=== PATIENT | female | born 1995 | race Caucasian/White ===

== ENCOUNTER → 2016-07-16 | Outpatient (CLI) | payer OTHER ==
[~2016-07-16] MED LIST: AGM875T PO; AMOX250S5 PO; BCP; CIPR-225 PO; CLIN300C3 PO; ESCI20TA2 PO; HYDR-1231 PO; HYDR118S PO; LMT25T PO; LORA10CA PO; MELO15TA14 PO; NF-SKEL800 PO; ONDA4TAB8 PO; PENI500T PO; PHEN-640 PO; SULF-222 PO; TRAM50TA2 PO; birth control; tetracaine suckers PO
--- OUTSIDE RECORDS SUMMARY | 2016-07-16 17:48 | XMS REPORT | Continuity of Care Document ---
Author Author Formerly [facility] Address Unknown Phone Unavailable Allergies Active Description Code Type Severity Reaction Onset Reported/Identified Relationship to Patient Clinical Status Yes No Known Drug Allergies [id number] Drug Allergy Unknown N/ A 06/26/2010 Yes Bactrim Drug Allergy N/A N/A 02/13/2014 Yes sulfamethoxazole [id number] Drug Allergy Severe HIVES 04/24/2014 Yes trimethoprim [id number] Drug Allergy Severe HIVES 04/24/2014 Medications Problems Date Dx Coded Attending Type Code Diagnosis Diagnosed By 06/26/2010 Ot 474.00 12/30/2011 616.10 VAGINITIS AND VULVOVAGINITIS UNSPECIFIED 12/30/2011 626.4 IRREGULAR MENSTRUAL CYCLE 12/30/2011 V74.5 STD SCREEN 12/30/2011 616.10 VAGINITIS AND VULVOVAGINITIS UNSPECIFIED 12/30/2011 626.4 IRREGULAR MENSTRUAL CYCLE 12/30/2011 V74.5 STD SCREEN 12/30/2011 616.10 VAGINITIS AND VULVOVAGINITIS UNSPECIFIED 12/30/2011 626.4 IRREGULAR MENSTRUAL CYCLE 12/30/2011 V74.5 STD SCREEN 12/30/2011 616.10 VAGINITIS AND VULVOVAGINITIS UNSPECIFIED 12/30/2011 626.4 IRREGULAR MENSTRUAL CYCLE 12/30/2011 V74.5 STD SCREEN 12/30/2011 HARITHA SOLOMON DO 616.10 VAGINITIS AND VULVOVAGINITIS UNSPECIFIED 12/30/2011 HARITHA SOLOMON DO 626.4 IRREGULAR MENSTRUAL CYCLE 12/30/2011 HARITHA SOLOMON DO V74.5 STD SCREEN 12/30/2011 HARITHA SOLOMON DO 616.10 VAGINITIS AND VULVOVAGINITIS UNSPECIFIED 12/30/2011 HARITHA SOLOMON DO 626.4 IRREGULAR MENSTRUAL CYCLE 12/30/2011 HARITHA SOLOMON DO V74.5 STD SCREEN 12/30/2011 SOLOMON DO, HARITHA K 616.10 VAGINITIS AND VULVOVAGINITIS UNSPECIFIED 12/30/2011 SOLOMON DO, HARITHA K 626.4 IRREGULAR MENSTRUAL CYCLE 12/30/2011 SOLOMON DO, HARITHA K V74.5 STD SCREEN 12/30/2011 SOLOMON DO, HARITHA K 616.10 VAGINITIS AND VULVOVAGINITIS UNSPECIFIED 12/30/2011 SOLOMON DO HARITHA K 626.4 IRREGULAR MENSTRUAL CYCLE 12/30/2011 SOLOMON DO HARITHA K V74.5 STD SCREEN 12/30/2011 SOLOMON DO, HARITHA K 616.10 VAGINITIS AND VULVOVAGINITIS UNSPECIFIED 12/30/2011 SOLMOON DO, HARITHA K 626.4 IRREGULAR MENSTRUAL CYCLE 12/30/2011 SOLOMON DO HARITHA K V74.5 STD SCREEN 12/30/2011 SOLOMON DO, HARITHA K 616.10 VAGINITIS AND VULVOVAGINITIS UNSPECIFIED 12/30/2011 SOLOMON DO HARITHA K 626.4 IRREGULAR MENSTRUAL CYCLE 12/30/2011 NEHA DO HARITHA K V74.5 STD SCREEN 12/30/2011 ZEN [employer] WE[employer] SERVICE UNIT OPERATOR, MIGUEL A 616.10 VAGINITIS AND VULVOVAGINITIS UNSPECIFIED 12/30/2011 ZEN OIL WELL SERVICE UNIT OPERATOR, MIGUEL A 626.4 IRREGULAR MENSTRUAL CYCLE 12/30/2011 ZEN OIL WELL SERVICE UNIT OPERATOR, MIGUEL A V74.5 STD SCREEN 12/30/2011 SOLOMON DO HARITHA K 616.10 VAGINITIS AND VULVOVAGINITIS UNSPECIFIED 12/30/2011 SOLOMON DO HARITHA K 626.4 IRREGULAR MENSTRUAL CYCLE 12/30/2011 SOLOMON DO HARITHA K V74.5 STD SCREEN 12/30/2011 SOLOMON DO, HARITHA K 616.10 VAGINITIS AND VULVOVAGINITIS UNSPECIFIED 12/30/2011 SOLOMON DO, HARITHA K 626.4 IRREGULAR MENSTRUAL CYCLE 12/30/2011 SOLOMON DO, HARITHA K V74.5 STD SCREEN 12/30/2011 ZEN OIL WELL SERVICE UNIT OPERATOR, MIGUEL A 616.10 VAGINITIS AND VULVOVAGINITIS UNSPECIFIED 12/30/2011 ZEN OIL WELL SERVICE UNIT OPERATOR, MIGUEL A 626.4 IRREGULAR MENSTRUAL CYCLE 12/30/2011 ZEN OIL WELL SERVICE UNIT OPERATOR, MIGUEL A V74.5 STD SCREEN 12/30/2011 NENA ZALDIVAR APRNIDI A 616.10 VAGINITIS AND VULVOVAGINITIS UNSPECIFIED 12/30/2011 NENA ZALDIVAR APRNIDI A 626.4 IRREGULAR MENSTRUAL CYCLE 12/30/2011 MIGUEL ZALDIVAR APRN A V74.5 STD SCREEN 01/27/2012 V25.02 Contraceptives 01/27/2012 V25.02 Contraceptives 01/27/2012 V25.02 Contraceptives 01/27/2012 V25.02 Contraceptives 01/27/2012 SOLOMON DO HARITHA K V25.02 Contraceptives 01/27/2012 SOLOMON DO, HARITHA K V25.02 Contraceptives 01/27/2012 SOLOMON DO, HARITHA K V25.02 Contraceptives 01/27/2012 SOLOMON DO, HARITHA K V25.02 Contraceptives 01/27/2012 SOLOMON DO, HARITHA K V25.02 Contraceptives 01/27/2012 SOLOMON DO, HARITHA K V25.02 Contraceptives 01/27/2012 MIGUEL ZALDIVAR APRN A V25.02 Contraceptives 01/27/2012 SOLOMON DO, HARITHA K V25.02 Contraceptives 01/27/2012 SOLOMON DO, HARITHA K V25.02 Contraceptives 01/27/2012 NENA ZALDIVAR APRNIDI A V25.02 Contraceptives 01/27/2012 MIGUEL ZALDIVAR APRN A V25.02 Contraceptives 02/09/2012 296.80 BIPOLAR DISORDER NOS 02/09/2012 296.80 BIPOLAR DISORDER NOS 02/09/2012 296.80 BIPOLAR DISORDER NOS 02/09/2012 296.80 BIPOLAR DISORDER NOS 02/09/2012 SOLOMON DO HARITHA K 296.80 BIPOLAR DISORDER NOS 02/09/2012 SOLOMON DO HARITHA K 296.80 BIPOLAR DISORDER NOS 02/09/2012 SOLOMON DO, HARITHA K 296.80 BIPOLAR DISORDER NOS 02/09/2012 SOLOMON DO, HARITHA K 296.80 BIPOLAR DISORDER NOS 02/09/2012 SOLOMON DO, HARITHA K 296.80 BIPOLAR DISORDER NOS 02/09/2012 SOLOMON DO HARITHA K 296.80 BIPOLAR DISORDER NOS 02/09/2012 ZEN FERRER MIGUEL A 296.80 BIPOLAR DISORDER NOS 02/09/2012 SOLOMON DO HARITHA K 296.80 BIPOLAR DISORDER NOS 02/09/2012 SOLOMON DO HARITHA K 296.80 BIPOLAR DISORDER NOS 02/09/2012 MIGUEL ZALDIVAR APRN 296.80 BIPOLAR DISORDER NOS 02/09/2012 MIGUEL ZALDIVAR APRN A 296.80 BIPOLAR DISORDER NOS 04/14/2012 V25.49 CONTRACEPTION SURVEILLANCE (REPEAT RX) 04/14/2012 V25.49 CONTRACEPTION SURVEILLANCE (REPEAT RX) 04/14/2012 V25.49 CONTRACEPTION SURVEILLANCE (REPEAT RX) 04/14/2012 V25.49 CONTRACEPTION SURVEILLANCE (REPEAT RX) 04/14/2012 HARITHA SOLOMON DO V25.49 CONTRACEPTION SURVEILLANCE (REPEAT RX) 04/14/2012 SOLOMON SAHARA MARTA K V25.49 CONTRACEPTION SURVEILLANCE (REPEAT RX) 04/14/2012 SOLOMON SAHARA MARTA K V25.49 CONTRACEPTION SURVEILLANCE (REPEAT RX) 04/14/2012 SAHARA SOLOMON DOA Nii V25.49 CONTRACEPTION SURVEILLANCE (REPEAT RX) 04/14/2012 HARITHA SOLOMON DO V25.49 CONTRACEPTION SURVEILLANCE (REPEAT RX) 04/14/2012 HARITHA SOLOMON DO V25.49 CONTRACEPTION SURVEILLANCE (REPEAT RX) 04/14/2012 MIGUEL ZALDIVAR APRN V25.49 CONTRACEPTION SURVEILLANCE (REPEAT RX) 04/14/2012 HARITHA SOLOMON DO V25.49 CONTRACEPTION SURVEILLANCE (REPEAT RX) 04/14/2012 HARITHA SOLOMON DO V25.49 CONTRACEPTION SURVEILLANCE (REPEAT RX) 04/14/2012 MIGUEL ZALDIVAR APRN V25.49 CONTRACEPTION SURVEILLANCE (REPEAT RX) 04/14/2012 MIGUEL ZALDIVAR APRN V25.49 CONTRACEPTION SURVEILLANCE (REPEAT RX) 06/02/2012 462 PHARYNGITIS ACUTE 06/02/2012 465.9 UPPER RESPIRATORY INFECTION 06/02/2012 462 PHARYNGITIS ACUTE 06/02/2012 465.9 UPPER RESPIRATORY INFECTION 06/02/2012 462 PHARYNGITIS ACUTE 06/02/2012 465.9 UPPER RESPIRATORY INFECTION 06/02/2012 HARITHA SOLOMON DO K 462 PHARYNGITIS ACUTE 06/02/2012 HARITHA SOLOMON DO K 465.9 UPPER RESPIRATORY INFECTION 06/02/2012 SAHARA SOLOMON DOA K 462 PHARYNGITIS ACUTE 06/02/2012 SOLOMON SAHARA MARTA K 465.9 UPPER RESPIRATORY INFECTION 06/02/2012 SAHARA SOLOMON DOA K 462 PHARYNGITIS ACUTE 06/02/2012 SOLOMON DO, HARITHA K 465.9 UPPER RESPIRATORY INFECTION 06/02/2012 SOLOMON DO, HARITHA K 462 PHARYNGITIS ACUTE 06/02/2012 SOLOMON DO, HARITHA K 465.9 UPPER RESPIRATORY INFECTION 06/02/2012 SOLOMON DO, HARITHA K 462 PHARYNGITIS ACUTE 06/02/2012 SOLOMON DO, HARITHA K 465.9 UPPER RESPIRATORY INFECTION 06/02/2012 SOLOMON DO, HARITHA K 462 PHARYNGITIS ACUTE 06/02/2012 SOLOMON DO, HARITHA K 465.9 UPPER RESPIRATORY INFECTION 06/02/2012 ZEN [employer] WELL SERVICE UNIT OPERATOR, MIGUEL A 462 PHARYNGITIS ACUTE 06/02/2012 ZEN OIL WELL SERVICE UNIT OPERATOR, MIGUEL A 465.9 UPPER RESPIRATORY INFECTION 06/02/2012 SOLOMON DO, HARITHA K 462 PHARYNGITIS ACUTE 06/02/2012 SOLOMON DO, HARITHA K 465.9 UPPER RESPIRATORY INFECTION 06/02/2012 SOLOMON DO, HARITHA K 462 PHARYNGITIS ACUTE 06/02/2012 SOLOMON DO, HARITHA K 465.9 UPPER RESPIRATORY INFECTION 06/02/2012 ZEN OIL WELL SERVICE UNIT OPERATOR, MIGUEL A 462 PHARYNGITIS ACUTE 06/02/2012 ZEN OIL WELL SERVICE UNIT OPERATOR, MIGUEL A 465.9 UPPER RESPIRATORY INFECTION 06/02/2012 ZEN OIL WELL SERVICE UNIT OPERATOR, MIGUEL A 462 PHARYNGITIS ACUTE 06/02/2012 ZEN OIL WELL SERVICE UNIT OPERATOR, MIGUEL A 465.9 UPPER RESPIRATORY INFECTION 08/01/2012 V74.1 TB SCREENING 08/01/2012 V74.1 TB SCREENING 08/01/2012 SOLOMON DO, HARITHA K V74.1 TB SCREENING 08/01/2012 SOLOMON DO, HARITHA K V74.1 TB SCREENING 08/01/2012 SOLOMON DO, HARITHA K V74.1 TB SCREENING 08/01/2012 SOLOMON DO, HARITHA K V74.1 TB SCREENING 08/01/2012 SOLOMON DO, HARITHA K V74.1 TB SCREENING 08/01/2012 SOLOMON DO, HARITHA K V74.1 TB SCREENING 08/01/2012 ZEN OIL WELL SERVICE UNIT OPERATOR, MIGUEL A V74.1 TB SCREENING 08/01/2012 SOLOMON DO, HARITHA K V74.1 TB SCREENING 08/01/2012 SOLOMON DO, HARITHA K V74.1 TB SCREENING 08/01/2012 ZEN OIL WELL SERVICE UNIT OPERATOR, MIGUEL A V74.1 TB SCREENING 08/01/2012 ZEN APRN, MIGUEL A V74.1 TB SCREENING 08/10/2012 V03.89 MENINGOCOCCAL DX 08/10/2012 SOLOMON DO, HARITHA K V03.89 MENINGOCOCCAL DX 08/10/2012 SOLOMON DO, HARITHA K V03.89 MENINGOCOCCAL DX 08/10/2012 SOLOMON DO, HARITHA K V03.89 MENINGOCOCCAL DX 08/10/2012 SOLOMON DO, HARITHA K V03.89 MENINGOCOCCAL DX 08/10/2012 SOLOMON DO, HARITHA K V03.89 MENINGOCOCCAL DX 08/10/2012 SOLOMON DO, HARITHA K V03.89 MENINGOCOCCAL DX 08/10/2012 ZEN OIL WELL SERVICE UNIT OPERATOR MIGUEL A V03.89 MENINGOCOCCAL DX 08/10/2012 SOLOMON DO, HARITHA K V03.89 MENINGOCOCCAL DX 08/10/2012 SOLOMON DO, HARITHA K V03.89 MENINGOCOCCAL DX 08/10/2012 ZENMalou FERRER MIGUEL A V03.89 MENINGOCOCCAL DX 08/10/2012 ZEN OIL WELL SERVICE UNIT OPERATOR MIGUEL A V03.89 MENINGOCOCCAL DX 01/24/2013 SOLOMON DO, HARITHA K V25.9 CONTRACEPTION MANAGEMENT 01/24/2013 SOLOMON DO, HARITHA K V25.9 CONTRACEPTION MANAGEMENT 01/24/2013 SOLOMON DO, HARITHA K V25.9 CONTRACEPTION MANAGEMENT 01/24/2013 SOLOMON DO, HARITHA K V25.9 CONTRACEPTION MANAGEMENT 01/24/2013 SOLOMON DO, HARITHA K V25.9 CONTRACEPTION MANAGEMENT 01/24/2013 SOLOMON DO, HARITHA K V25.9 CONTRACEPTION MANAGEMENT 01/24/2013 ZEN FERRER MIGUEL A V25.9 CONTRACEPTION MANAGEMENT 01/24/2013 SOLOMON DO, HARITHA K V25.9 CONTRACEPTION MANAGEMENT 01/24/2013 SOLOMON DO, HARITHA K V25.9 CONTRACEPTION MANAGEMENT 01/24/2013 ZEN APRN, MIGUEL A V25.9 CONTRACEPTION MANAGEMENT 01/24/2013 ZEN APRN, MIGEUL A V25.9 CONTRACEPTION MANAGEMENT 05/15/2013 SOLOMON DO HARITHA K 461.9 SINUSITIS ACUTE 05/15/2013 SOLOMON DO HARITHA K 461.9 SINUSITIS ACUTE 05/15/2013 SOLOMON DO HARITHA K 461.9 SINUSITIS ACUTE 05/15/2013 SOLOMON DO, HARITHA K 461.9 SINUSITIS ACUTE 05/15/2013 ZEN OIL WELL SERVICE UNIT OPERATOR, MIGUEL A 461.9 SINUSITIS ACUTE 05/15/2013 SOLOMON DO, HARITHA K 461.9 SINUSITIS ACUTE 05/15/2013 SOLOMON DO, HARITHA K 461.9 SINUSITIS ACUTE 05/15/2013 ZEN OIL WELL SERVICE UNIT OPERATOR, MIGUEL A 461.9 SINUSITIS ACUTE 05/15/2013 ZEN OIL WELL SERVICE UNIT OPERATOR, MIGUEL A 461.9 SINUSITIS ACUTE 09/26/2013 SOLOMON DO, HARITHA K V06.1 TDAP DX 09/26/2013 SOLOMON DO, HARITHA K V06.1 TDAP DX 09/26/2013 ZEN OIL WELL SERVICE UNIT OPERATOR, MIGUEL A V06.1 TDAP DX 09/26/2013 SOLOMON DO, HARITHA K V06.1 TDAP DX 09/26/2013 SOLOMON DO, HARITHA K V06.1 TDAP DX 09/26/2013 ZEN OIL WELL SERVICE UNIT OPERATOR, MIGUEL A V06.1 TDAP DX 09/26/2013 ZEN OIL WELL SERVICE UNIT OPERATOR, MIGUEL A V06.1 TDAP DX 10/22/2013 CHRISTINE RICHARD MD A Ot 682.6 CELLULITIS OF LEG 12/26/2013 ZEN FERRER, MIGUEL A 799.29 OTHER SIGNS AND SYMPTOMS INVOLVING EMOTIONAL STATE 12/26/2013 SOLOMON DOSAHARAA K 799.29 OTHER SIGNS AND SYMPTOMS INVOLVING EMOTIONAL STATE 12/26/2013 SOLOMON DO HARITHA K 799.29 OTHER SIGNS AND SYMPTOMS INVOLVING EMOTIONAL STATE 12/26/2013 ZENJEFFREY FERRER, MIGUEL A 799.29 OTHER SIGNS AND SYMPTOMS INVOLVING EMOTIONAL STATE 12/26/2013 ZENJEFFREY FERRER, MIGUEL A 799.29 OTHER SIGNS AND SYMPTOMS INVOLVING EMOTIONAL STATE 02/13/2014 SOLOMON DO, HARITHA K 382.9 OTITIS MEDIA 02/13/2014 ZEN FERRER, MIGUEL A 382.9 OTITIS MEDIA 02/13/2014 NENA ZALDIVAR APRNIDI A 382.9 OTITIS MEDIA 04/23/2014 LUIS ENRIQUE SMITH Ot 882.0 OPEN WOUND OF HAND 04/23/2014 LUIS ENRIQUE SMITH Ot E000.8 OTHER EXTERNAL CAUSE STATUS 04/23/2014 LUIS ENRIQUE SMITH Ot E906.3 ANIMAL BITE NEC 04/24/2014 LUIS ENRIQUE SMITH Ot V58.30 ENCOUNTER FOR CHANGE OR REMOVAL OF NONSU 04/25/2014 GABRIELA JOHNSON DO Ot 682.4 CELLULITIS OF HAND 07/02/2014 ZEN FERRER, MIGUEL A 373.11 HORDEOLUM EXTERNUM 07/02/2014 ZEN OIL WELL SERVICE UNIT OPERATOR, MIGUEL A 373.11 HORDEOLUM EXTERNUM 07/19/2014 EZN OIL WELL SERVICE UNIT OPERATOR, MIGUEL A V25.09 CONTRACEPTIVE COUNSELING - GENERAL 07/19/2014 ZEN OIL WELL SERVICE UNIT OPERATOR, MIGUEL A V25.09 CONTRACEPTIVE COUNSELING - GENERAL 08/06/2014 ZEN APRN, MIGUEL A V25.5 IMPLANON INSERTION 08/09/2014 MIGUEL ZALDIVAR APRN A 461.1 ACUTE FRONTAL SINUSITIS 12/23/2014 JACKLYN NEVILLE OIL WELL SERVICE UNIT OPERATOR Ot 558.9 NONINF GASTROENTERIT NEC 12/23/2014 JACKLYN NEVILLE OIL WELL SERVICE UNIT OPERATOR Ot 787.03 VOMITING ALONE 12/23/2014 TEOFILO JEFF MEDICAID COLLECTION SPECIALIST Ot 518.89 12/23/2014 TEOFILO JEFF MEDICAID COLLECTION SPECIALIST Ot 795.51 03/02/2015 TEOFILO JEFF MEDICAID COLLECTION SPECIALIST Ot 518.89 03/02/2015 TEOFILO JEFF MEDICAID COLLECTION SPECIALIST Ot 795.51 03/02/2015 JACKLYN NEVILLE OIL WELL SERVICE UNIT OPERATOR Ot Z09 2015 SARIAH LOPEZ DO Ot M54.5 LOW BACK PAIN 2015 SARIAH LOPEZ DO Ot R31.2 OTHER MICROSCOPIC HEMATURIA 2015 TEOFILO JEFF MEDICAID COLLECTION SPECIALIST Ot 518.89 2015 TEOFILO JEFF MEDICAID COLLECTION SPECIALIST Ot 795.51 07/03/2015 ALAYNA EPSTEIN, CELESTINE Tierney Ot N12 TUBULO-INTERSTITIAL NEPHRITIS, NOT SPCF 07/03/2015 ALAYNA EPSTEIN, CELESTINE Tierney Ot N39.0 URINARY TRACT INFECTION, SITE NOT SPECIF 07/06/2015 ALAYNA EPSTEIN, CELESTINE Tierney Ot M54.5 LOW BACK PAIN 07/06/2015 ALAYNA EPSTEIN, CELESTINE Tierney Ot R10.13 EPIGASTRIC PAIN 07/06/2015 ALAYNA EPSTEIN, CELESTINE Tierney Ot R11.2 NAUSEA WITH VOMITING, UNSPECIFIED 07/06/2015 ALAYNA EPSTEIN, CELESTINE Tierney Ot R19.7 DIARRHEA, UNSPECIFIED 07/19/2015 AZUL QUIÑONES MD Ot B34.9 VIRAL INFECTION, UNSPECIFIED 08/01/2015 CATHERINE EPSTEIN, SIXTO Bales Ot J06.9 ACUTE UPPER RESPIRATORY INFECTION, UNSPE 08/02/2015 CATHERINE EPSTEIN, SIXTO Bales Ot J06.9 12/11/2015 TEOFILO JEFF MEDICAID COLLECTION SPECIALIST Ot 518.89 OTHER DISEASES OF LUNG, NEC 12/11/2015 TEOFILO JEFF MEDICAID COLLECTION SPECIALIST Ot 795.51 NONSP RX TO TUBERCULIN SKIN TEST W/ O ACT 04/12/2016 TEOFILO JEFF MEDICAID COLLECTION SPECIALIST Ot 518.89 OTHER DISEASES OF LUNG, NEC 04/12/2016 TEOFILO JEFF MEDICAID COLLECTION SPECIALIST Ot 795.51 NONSP RX TO TUBERCULIN SKIN TEST W/ O ACT 04/12/2016 AZUL QUIÑONES MD Ot N39.0 URINARY TRACT INFECTION, SITE NOT SPECIF 04/12/2016 AZUL QUIÑONES MD Ot R35.0 FREQUENCY OF MICTURITION 04/14/2016 AZUL QUIÑONES MD Ot N39.0 URINARY TRACT INFECTION, SITE NOT SPECIF 04/14/2016 AZUL QUIÑONES MD Ot R35.0 FREQUENCY OF MICTURITION Procedures Code [place] [address] THERAPUTIC INJ SQ/IM 04/14/2012 J1055 DEPO-PROVERA INJ 150 MG 04/14/2012 09096 URINE TEST (IN-HOUSE) 04/14/2012 04600 STREP A (IN-HOUSE) 06/02/2012 97617 TB TEST INTRADERMAL 08/01/2012 09149 URINE TEST (IN-HOUSE) 09/26/2012 47811 THERAPUTIC INJ SQ/IM 09/26/2012 J1050 DEPO PROVERA 99023 GC/CHLAM URINE (STATE) 01/24/2013 37247 URINE TEST (IN-HOUSE) 01/24/2013 16462 THERAPUTIC INJ SQ/IM 01/31/2013 J1050 DEPO PROVERA 74580 URINE TEST (IN-HOUSE) 01/31/2013 04575 URINE TEST (IN-HOUSE) 04/27/2013 J1050 DEPO PROVERA 76900 THERAPUTIC INJ SQ/IM 04/27/2013 70067 THERAPUTIC INJ SQ/IM 07/21/2013 J1050 DEPO PROVERA 05600 TEST, URINE (IN-HOUSE) 07/21/2013 J1050 DEPO PROVERA 02/2014 20921 TEST, URINE (IN-HOUSE) 10/17/2013 34471 THERAPUTIC INJ SQ/IM 10/17/2013 76483 THERAPUTIC INJ SQ/IM 01/24/2014 J1050 DEPO PROVERA 00107 TEST, URINE (IN-HOUSE) 01/24/2014 Results Test Result Range Urine beta human chorionic gonadotropin (hCG) measurement - 04/12/16 08:15 Urine beta human chorionic gonadotropin (hCG) measurement NEGATIVE NEGATIVE Complete urinalysis with reflex to culture - 04/12/16 08:15 Urine color determination RED NRG Urine clarity determination VERY CLOUDY NRG Urine pH measurement by test strip 6 5- 9 Specific gravity of urine by test strip 1.020 1.016-1.022 Urine protein assay by test strip, semi-quantitative 3+ NEGATIVE Urine glucose detection by automated test strip NEGATIVE NEGATIVE Erythrocytes detection in urine sediment by light microscopy 5+ NEGATIVE Urine ketones detection by automated test strip NEGATIVE NEGATIVE Urine nitrite detection by test strip POSITIVE NEGATIVE Urine total bilirubin detection by test strip 1+ NEGATIVE Urine urobilinogen measurement by automated test strip (mass/volume) 1 mg/dL NORMAL Urine leukocyte esterase detection by dipstick 3+ NEGATIVE Automated urine sediment erythrocyte count by microscopy (number/high power field) TNTC NRG Automated urine sediment leukocyte count by microscopy (number/high power field ) TNTC NRG Bacteria detection in urine sediment by light microscopy LARGE NRG Squamous epithelial cells detection in urine sediment by light microscopy 0-2 NRG Crystals detection in urine sediment by light microscopy NONE NRG Casts detection in urine sediment by light microscopy NONE NRG Mucus detection in urine sediment by light microscopy NEGATIVE NRG Complete urinalysis with reflex to culture YES NRG Bacterial urine culture - 04/12/16 08:15 URINE CULTURE RESULTS <10,000/ML NRG Encounters ACCT No. Visit Date/Time Discharge Status Pt. Type Provider Facility Loc./Unit Complaint [id number] 08/09/2014 10:08:00 08/09/2014 23: 59:59 CLS Outpatient MIGUEL ZALDIVAR APRN [id number] 07/19/2014 15:42:00 07/19/2014 23: 59:59 CLS Outpatient MIGUEL ZALDIVAR APRN [id number] 02/13/2014 18:42:00 02/13/2014 23: 59:59 CLS Outpatient HARITHA SOLOMON DO [id number] 01/24/2014 17:34:00 01/24/2014 23: 59:59 CLS Outpatient HARITHA SOLOMON DO [id number] 12/26/2013 14:17:00 12/26/2013 23: 59:59 CLS Outpatient MIGUEL ZALDIVAR APRN [id number] 10/17/2013 08:20:00 10/17/2013 23: 59:59 CLS Outpatient HARITHA SOLOMON DO [id number] 09/26/2013 14:44:00 09/26/2013 23: 59:59 CLS Outpatient HARITHA SOLOMON DO [id number] 07/21/2013 12:11:00 07/21/2013 23: 59:59 CLS Outpatient HARITHA SOLOMON DO [id number] 05/15/2013 18:43:00 05/15/2013 23: 59:59 CLS Outpatient HARITHA SOLOMON DO [id number] 04/27/2013 15:32:00 04/27/2013 23: 59:59 CLS Outpatient HARITHA SOLOMON DO [id number] 01/31/2013 15:06:00 01/31/2013 23: 59:59 CLS Outpatient HARITHA SOLOMON DO [id number] 08/01/2012 15:07:00 08/01/2012 23: 59:59 CLS Outpatient [id number] 06/02/2012 14:03:00 06/02/2012 23: 59:59 CLS Outpatient [id number] 04/14/2012 15:37:00 04/14/2012 23: 59:59 CLS Outpatient [id number] 09/26/2012 15:46:00 Document Registration [id number] 08/10/2012 14:24:48 RECURRING
== END ==
LOC: LAB 17:43
DX: Z52.0 Blood donor (principal)
CPT/HCPCS: 36415; 84703

== ENCOUNTER → 2017-04-06 | Outpatient (CLI) | payer BC, OTHER ==
--- NOTE | 2017-04-06 20:24 | Diagnostic Imaging Report ---
EXAMINATION: Left breast ultrasound. INDICATION: Left breast nodule. The patient is 6 weeks . FINDINGS: The palpable area demonstrates a nodule at the 2:30 o'clock position 2 cm from the nipple measuring 1.6 x 0.8 x 1.9 cm with a homogeneous hypoechoic appearance with lobulated circumscribed margins and increased through transmission. There is internal vascular Doppler signal seen. The lesion is most likely a fibroadenoma. The surrounding area was evaluated with no suspicious lesion seen. IMPRESSION: A 1.9 cm solid mass at the 2:30 o'clock position 2 cm from the nipple matches the palpable area and has features suggestive of a fibroadenoma. Confirmation with an ultrasound-guided biopsy is suggested. Alternatively, this could be followed for 2 years starting at 6 month intervals with ultrasounds to prove stability. ACR BI-RADS Category 4A: Low suspicion of malignancy Please fax results to ordering physician and document. Report faxed to Dr. Melgoza at 8:24 p.m. 04/06/2017/cb Dictated by: Dictated on workstation # [id number]
== END ==
LOC: RAD 10:55
PROVIDERS: ATTEND Family Medicine
DX: O92.29 Other disorders of breast associated with pregnancy and the puerperium (principal); Z3A.01 Less than 8 weeks gestation of pregnancy
CPT/HCPCS: 76641

== ENCOUNTER 2017-04-07 15:02 | Emergency (ER) | payer BC ==
[~2017-04-07] VITALS: Ht 162.6 cm; Wt 57.2 kg
[2017-04-07 15:18] VITALS: BP 116/68
[2017-04-07 15:31] LABS: BILIRUBIN,URINE NEGATIVE (NEGATIVE); KETONES,URINE NEGATIVE (NEGATIVE); LEUKOCYTE ESTERASE ,URINE NEGATIVE (NEGATIVE); NITRITE,URINE NEGATIVE (NEGATIVE); PH,URINE 6 (5-9); PROTEIN,URINE NEGATIVE (NEGATIVE); UROBILINOGEN,URINE NORMAL (NORMAL)
[2017-04-07 15:37] LABS: BASOPHILS % (AUTO) 0 % (0-10); EOSINOPHILS # (AUTO) 0.1 10^3/uL (0.0-0.3); EOSINOPHILS % (AUTO) 1 % (0-10); LYMPHOCYTES # (AUTO) 1.8 X 10^3 (1.0-4.0); LYMPHOCYTES % (AUTO) 26 % (12-44); MEAN CORPUSCULAR HEMOGLOBIN 31 PG (25-34); MEAN CORPUSCULAR HGB CONC 35 G/DL (32-36); MEAN CORPUSCULAR VOLUME 89 FL (80-99); MEAN PLATELET VOLUME 9.7 FL (7.4-10.4); MONOCYTES # (AUTO) 0.7 X 10^3 (0.0-1.0); MONOCYTES % (AUTO) 10 % (0-12); NEUTROPHILS # (AUTO) 4.4 X 10^3 (1.8-7.8); NEUTROPHILS % (AUTO) 63 % (42-75); PLATELET COUNT 276 10^3/uL (130-400); RED BLOOD COUNT 4.07 10^6/uL (4.35-5.85); RED CELL DISTRIBUTION WIDTH 12.1 % (10.0-14.5); WHITE BLOOD COUNT 6.9 10^3/uL (4.3-11.0)
[2017-04-07 15:49] LABS: WBC,URINE 0-2 /HPF
--- NOTE | 2017-04-07 16:03 | ED GU-Female ---
General Chief Complaint: -Female Stated Complaint: 6 WKS ;SPOTTING Nursing Triage Note: PT REPORTS DARK BROWN VAGINAL DISCHARGE SINCE APPROX 1400 TODAY. SHE ALSO C/O ABD CRAMPING. SHE REPORTS SHE IS APPROX 6 WEEKS . Nursing Sepsis Screen: No Definite Risk Source: patient Exam Limitations: no limitations History of Present Illness Time seen by provider: 16:01 Initial Comments To ER with some lower abdominal cramping intermittently but not currently, no fevers, no dysuria. She has some brownish vaginal discharge as well as some brighter blood. Symptoms began today. She is about 6 weeks . She is scheduled to see Dr. GARCIA to establish care tomorrow. Timing/Duration: this afternoon Severity/Quality: moderate Radiation: none Prior Genitourinary Problems: none Associated Symptoms: abdominal pain, No dysuria Allergies and Home Medications Allergies Coded Allergies: sulfamethoxazole (Unverified Allergy, Severe, HIVES, 04/24/14) trimethoprim (Unverified Allergy, Severe, HIVES, 04/24/14) Home Medications [ control] , (Reported) Constitutional: see HPI EENTM: see HPI Respiratory: no symptoms reported Cardiovascular: no symptoms reported Genitourinary: see HPI : Yes Musculoskeletal: no symptoms reported Skin: no symptoms reported Psychiatric/Neurological: No Symptoms Reported Endocrine: No Symptoms Reported Hematologic/Lymphatic: No Symptoms Reported Past Wmwpbeq-Vlyhua-Thncjg Hx Patient Social History Alcohol Use: Denies Use Recreational Drug Use: No Smoking Status: Never a Smoker 2nd Hand Smoke Exposure: No Recent Foreign Travel: No Contact w/Someone Who Travel: No Recent Infectious Disease Expo: No Recent Hopitalizations: No Immunizations Up To Date Tetanus Booster (TDap): Less than 5yrs Seasonal Allergies Seasonal Allergies: No Surgeries History of Surgeries: Yes Surgeries: Adenoidectomy, Tonsillectomy Respiratory History of Respiratory Disorde: No Cardiovascular History of Cardiac Disorders: No Neurological History of Neurological Disord: No Reproductive System Last Menstrual Period: Feb 20, 2017 Hx Reproductive Disorders: No Sexually Transmitted Disease: No 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 Gastrointestinal History of Gastrointestinal Di: No Musculoskeletal History of Musculoskeletal Dis: No Endocrine History of Endocrine Disorders: No Cancer History of Cancer: No Psychosocial History of Psychiatric Problem: No Integumentary History of Skin or Integumenta: No Blood Transfusions History of Blood Disorders: No Family Medical History Significant Family History: Cancer Physical Exam Vital Signs Vital Sign - Last 12Hours 04/07/17 15:18 Temp 97.2 Pulse 70 Resp 16 B/P (MAP) 116/68 Pulse Ox 99 O2 Delivery Room Air Capillary Refill : Less Than 3 Seconds General Appearance: WD/WN, no apparent distress HEENT: PERRL/EOMI, normal ENT inspection Neck: non-tender, full range of motion Respiratory: no respiratory distress, no accessory muscle use Gastrointestinal: normal bowel sounds, non tender, soft Pelvic: normal external exam Neurologic/Psychiatric: alert, normal mood/affect, oriented x 3 Skin: normal color, warm/dry Progress/Results/Core Measures Suspected Sepsis Recent Fever Within 48 Hours: No Infection Criteria Present: None New/Unexplained Altered Menta: No Sepsis Screen: No Definite Risk Sepsis Diagnosis: SIRS Temperature:97.2 Pulse: 70 Respiratory Rate: 16 Laboratory Tests 04/07/17 15:25: White Blood Count 6.9 Blood Pressure 116 /68 Mean: 84 Laboratory Tests 04/07/17 15:25: Platelet Count 276 Results/Orders Lab Results Laboratory Tests Test 04/07/17 15:20 04/07/17 15:25 Range/Units Urine Color YELLOW Urine Clarity CLEAR Urine pH 6 5-9 Urine Specific Arch[place]d 1.015 L 1.016-1.022 Urine Protein NEGATIVE NEGATIVE Urine Glucose (UA) NEGATIVE NEGATIVE Urine Ketones NEGATIVE NEGATIVE Urine Nitrite NEGATIVE NEGATIVE Urine Bilirubin NEGATIVE NEGATIVE Urine Urobilinogen NORMAL NORMAL MG/DL Urine Leukocyte Esterase NEGATIVE NEGATIVE Urine RBC (Auto) 4+ H NEGATIVE Urine RBC 0-2 /HPF Urine WBC 0-2 /HPF Urine Squamous Epithelial Cells 5-10 /HPF Urine Crystals NONE /LPF Urine Bacteria FEW H /HPF Urine Casts NONE /LPF Urine Mucus NEGATIVE /LPF Urine Culture Indicated NO White Blood Count 6.9 4.3-11.0 10^3/uL Red Blood Count 4.07 L 4.35-5.85 10^6/uL Hemoglobin 12.7 11.5-16.0 G/DL Hematocrit 36 35-52 % Mean Corpuscular Volume 89 80-99 FL Mean Corpuscular Hemoglobin 31 25-34 PG Mean Corpuscular Hemoglobin Concent 35 32-36 G/DL Red Cell Distribution Width 12.1 10.0-14.5 % Platelet Count 276 130-400 10^3/uL Mean Platelet Volume 9.7 7.4-10.4 FL Neutrophils (%) (Auto) 63 42-75 % Lymphocytes (%) (Auto) 26 12-44 % Monocytes (%) (Auto) 10 0-12 % Eosinophils (%) (Auto) 1 0-10 % Basophils (%) (Auto) 0 0-10 % Neutrophils # (Auto) 4.4 1.8-7.8 X 10^3 Lymphocytes # (Auto) 1.8 1.0-4.0 X 10^3 Monocytes # (Auto) 0.7 0.0-1.0 X 10^3 Eosinophils # (Auto) 0.1 0.0-0.3 10^3/uL Basophils # (Auto) 0.0 0.0-0.1 10^3/uL Human Chorionic Gonadotropin, Quant 1859 H <5 MIU/ML My Orders Orders - JACKLYN NEVILLE APRN Cbc With Automated Diff (04/07/17 15:18) Abo Rh Type (04/07/17 15:18) Ua Culture If Indicated (04/07/17 15:18) Hcg,Quantitative (04/07/17 15:18) Us Ob Transvaginal [id number] (04/07/17 15:18) Vital Signs/I&O Vital Sign - Last 12Hours 04/07/17 15:18 Temp 97.2 Pulse 70 Resp 16 B/P (MAP) 116/68 Pulse Ox 99 O2 Delivery Room Air Capillary Refill : Less Than 3 Seconds Blood Pressure Mean: 84 Diagnostic Imaging Diagonstic Imaging: Ultrasound Comments NAME: JENNIE CRAWFORDChris Burgos MED REC#: [id number] PT STATUS: REG ER : 1995 PHYSICIAN: JACKLYN NEVILLE APRN ADMIT DATE: 04/07/17/ER Signed Date of Exam:04/07/17 US OB TRANSVAGINAL [id number] First trimester OB ultrasound. INDICATION: Spotting. FINDINGS: There is a normal-appearing single intrauterine . An embryo is seen with cardiac activity at 134 beats per minute. The crown-rump length is at 6 weeks and one day. LEONIDES is 11/30/2017. There is no subchorionic hemorrhage. There is small amount of free fluid in the pelvis. In the left adnexa there is a 1.4 centimeter cyst. The right adnexa demonstrates a the 2 cm cyst. Both appear to be simple with no solid component. The ovaries are not clearly identified however. IMPRESSION: Live single intrauterine . Small amount of free fluid is seen in the pelvis of uncertain etiology. Dictated by: Dictated on workstation # [id number] Dict: 04/07/17 1605 Trans: 04/07/17 1611 [facility] [id number] Interpreted by: GENIE CARLSON MD Electronically signed by: GENIE CARLSON MD 04/07/17 1611 Departure Communication (Admissions) Progress Notes underwriting technician reports live intrauterine 6 weeks 1 day. Some incidental findings in each adnexa and minor amount of pelvic free fluid. See the official report for details. We will discharge the patient home to follow- up with Dr. GARCIA tomorrow. Impression Impression: Primary Impression: Vaginal bleeding affecting early Disposition: 01 HOME, SELF-CARE Condition: Stable Departure-Patient Inst. Decision time for Depature: 16:03 Referrals: [facility] (PCP/Family) Primary Care Physician Patient Instructions: NO INSTRUCTIONS GIVEN Add. Discharge Instructions: 1. Return to ER for any concerns 2. Follow-up with Dr. GARCIA tomorrow All discharge instructions reviewed with patient and/or family. Voiced understanding. Copy Copies To 1: LALITO GARCIA PETER J APRN Apr 07, 2017 16:03
--- NOTE | 2017-04-07 16:13 | Diagnostic Imaging Report ---
First trimester OB ultrasound. INDICATION: Spotting. FINDINGS: There is a normal-appearing single intrauterine . An embryo is seen with cardiac activity at 134 beats per minute. The crown-rump length is at 6 weeks and one day. LEONIDES is 11/30/2017. There is no subchorionic hemorrhage. There is small amount of free fluid in the pelvis. In the left adnexa there is a 1.4 centimeter cyst. The right adnexa demonstrates a the 2 cm cyst. Both appear to be simple with no solid component. The ovaries are not clearly identified however. IMPRESSION: Live single intrauterine . Small amount of free fluid is seen in the pelvis of uncertain etiology. Dictated by: Dictated on workstation # [id number]
== END 2017-04-07 16:15 | disposition home or self-care (01) ==
LOC: EDUNIT# 15:02 → ER 15:03
DX: O20.9 Hemorrhage in early pregnancy, unspecified (principal); Z3A.01 Less than 8 weeks gestation of pregnancy; Z97.5 Presence of (intrauterine) contraceptive device; Z90.89 Acquired absence of other organs
CPT/HCPCS: 36415; 76817; 81000; 84702; 85025; 86900; 86901; 99283

== ENCOUNTER 2017-04-08 10:05 | Emergency (ER) | payer BC ==
--- OUTSIDE RECORDS SUMMARY | 2017-04-08 10:11 | XMS REPORT ---
Author Author JAN ARIZA Organization [employer] Address Unknown Phone Unavailable Care Team Providers Care Commercial Front Load Operator Name Role Phone JAN ARIZA CP Unavailable Allergies, Adverse Reactions, Alerts Substance Reaction Event Type Bactrim Info Not Available Drug Allergy Problems Problem Type Condition Code Onset Dates Condition Status Assessment Abscess L02.91 Active Assessment Encounter for incision and drainage procedure Z01.89 Active Problem Bipolar 1 disorder F31.9 Active Medications Medication Code System Code Instructions Start Date End Date Status Dosage Clindamycin HCl [facility] [address]-24 300 MG Orally every 8 hrs Apr 19, 2015 Apr 29, 2015 1 capsule Ortho-Cyclen (28) [facility] [address]-39 0.25-35 MG-MCG Orally Once a day Feb 1 tablet Procedures Procedure Coding System Code Date CULTURE, BACTERIA, OTHER CPT-4 91504 Apr 19, 2015 Office Visit, Est Pt., Level 3 CPT-4 56561 Apr 19, 2015 CULTURE BACTERIA ANAEROBIC CPT-4 26821 Apr 19, 2015 Vital Signs Date/Time: Apr 19, 2015 Temperature 98.7 F Weight 126.0 lbs Height 64 in BMI 21.63 Index Blood Pressure Diastolic 68 mmHg Blood Pressure Systolic 100 mmHg Cardiac Monitoring Heart Rate 76 bpm BMIPercentile 48.95 % Wt Percentile 45.51 % Results No Known Results Summary Purpose eClinicalWorks Submission
--- OUTSIDE RECORDS SUMMARY | 2017-04-08 10:12 | XMS REPORT ---
Author Author NATE BRAN [employer] Address Unknown Phone Unavailable Care Team Providers Care Sprinkling System Irrigator Name Role Phone NATE BRAN CP Unavailable Allergies, Adverse Reactions, Alerts Substance Reaction Event Type Bactrim Info Not Available Drug Allergy Problems Problem Type Condition Code Onset Dates Condition Status Problem Blood in urine R31.9 Active Problem Urine ketones R82.4 Active Problem Right-sided low back pain without sciatica M54.5 Active Assessment Blood in urine R31.9 Active Assessment Urine ketones R82.4 Active Problem Bipolar 1 disorder F31.9 Active Assessment Right-sided low back pain without sciatica M54.5 Active Medications Medication Code System Code Instructions Start Date End Date Status Dosage Naproxen [facility] [address]-02 500 MG Orally every 12 hrs May 17, 2015Jun 1 tablet as needed Ortho-Cyclen (28) [facility] [address]-74 0.25-35 MG-MCG Orally Once a day Feb 1 tablet Procedures Procedure Coding System Code Date URINE CULTURE/COLONY COUNT CPT-4 41066 May 17, 2015 Office Visit, Est Pt., Level 3 CPT-4 43975 May 17, 2015 Vital Signs Date/Time: May 17, 2015 Temperature 98.0 F Weight 124 lbs Height 64 in BMI 21.28 Index Blood Pressure Diastolic 62 mmHg Blood Pressure Systolic 102 mmHg Cardiac Monitoring Heart Rate 70 bpm Results Name Result Date Reference Range Unit Abnormality Flag UA LONG DIP (IN HOUSE) ----REMI Negative 20150517 ----NIT Negative 20150517 ----SG 1.025 20150517 ----KET Trace [id number] ----MORIAH Negative 20150517 ----GLU Negative [id number] ----Odor none [id number] ----pH 6.0 20150517 ----BLO trace-intact 20150517 ----URO 1.0E.U./dL 20150517 ----Protein Negative 20150517 ----Lot # [id number] ----Exp date [id number] ----Clarity clear [id number] ----Color yellow [id number] CULTURE, URINE ----Result 1 No growth [id number] ----Urine Culture, Routine Final report [id number] Summary Purpose eClinicalWorks Submission
--- OUTSIDE RECORDS SUMMARY | 2017-04-08 10:12 | XMS REPORT ---
Author Author JAN ARIZA Organization [employer] Address Unknown Phone Unavailable Care Team Providers Care Musical Instruments Assembler Name Role Phone JAN ARIZA CP Unavailable Allergies, Adverse Reactions, Alerts Substance Reaction Event Type Bactrim Info Not Available Drug Allergy Problems Problem Type Condition Code Onset Dates Condition Status Problem Bipolar 1 disorder F31.9 Active Assessment Bronchitis J40 Active Problem Bilateral headaches R51 Active Problem Oral contraceptive pill surveillance Z30.41 Active Problem Environmental allergies Z91.09 Active Problem Blood in urine R31.9 Active Problem Urine ketones R82.4 Active Problem Low back pain M54.5 Active Problem Right-sided low back pain without sciatica M54.5 Active Medications Medication Code System Code Instructions Start Date End Date Status Dosage PredniSONE [facility] [address]-20 10 mg Orally Once a day Feb 08, 2016 Feb 18, 2016 1 tid x 3, bid x 3 and daily x 3 Tessalon Perles [facility] [address]-39 100 MG Orally Three times a day Feb 08, 2016 1 capsule as needed Azithromycin [facility] [address]-33 250 MG Orally Once a day Feb 10, 2016 Feb 15, 2016 2 tablets on the first day, then 1 tablet daily for 4 days Procedures Procedure Coding System Code Date Office Visit, Est Pt., Level 3 CPT-4 83862 Feb 10, 2016 Vital Signs Date/Time: Feb 10, 2016 Cardiac Monitoring Heart Rate 92 bpm Weight 216.27 lbs Height 64 in BMI 37.12 Index Blood Pressure Diastolic 60 mmHg Blood Pressure Systolic 98 mmHg Results No Known Results Summary Purpose eClinicalWorks Submission
--- OUTSIDE RECORDS SUMMARY | 2017-04-08 10:12 | XMS REPORT ---
Author Author DIPIKA ARNDT [facility] eClinical[employer] Address Unknown Phone Unavailable Care Team Providers Care Feather Curling Machine Operator Name Role Phone DIPIKA ARNDT CP Unavailable Allergies, Adverse Reactions, Alerts Substance Reaction Event Type Bactrim Info Not Available Drug Allergy Problems Problem Type Condition Code Onset Dates Condition Status Assessment Cough R05 Active Problem Bipolar 1 disorder F31.9 Active Assessment Environmental allergies Z91.09 Active Assessment Postnasal drip R09.82 Active Problem Bilateral headaches R51 Active Problem Oral contraceptive pill surveillance Z30.41 Active Problem Environmental allergies Z91.09 Active Problem Blood in urine R31.9 Active Problem Urine ketones R82.4 Active Problem Low back pain M54.5 Active Problem Right-sided low back pain without sciatica M54.5 Active Medications Medication Code System Code Instructions Start Date End Date Status Dosage Aruna Mazariegoses [facility] [address]-31 100 MG Orally Three times a day Feb 08, 2016 1 capsule as needed PredniSONE [facility] [address]-45 10 mg Orally Once a day Feb 08, 2016 Feb 18, 2016 1 tid x 3, bid x 3 and daily x 3 Procedures Procedure Coding System Code Date Office Visit, Est Pt., Level 3 CPT-4 12726 Feb 08, 2016 Vital Signs Date/Time: Feb 08, 2016 Cardiac Monitoring Heart Rate 86 bpm Weight 132. lbs Height 64 in BMI 22.66 Index Blood Pressure Diastolic 54 mmHg Blood Pressure Systolic 98 mmHg Results No Known Results Summary Purpose eClinicalWorks Submission
--- OUTSIDE RECORDS SUMMARY | 2017-04-08 10:12 | XMS REPORT ---
Author Author NATE BRAN Organization [employer] Address Unknown Phone Unavailable Care Team Providers Care Surface Water Manager Name Role Phone NATE BRAN CP Unavailable Allergies No Known Allergies Problems Problem Type Condition Code Onset Dates Condition Status Assessment Right-sided low back pain without sciatica M54.5 Active Assessment Routine screening for STI (sexually transmitted infection) Z11.3 Active Problem Oral contraceptive pill surveillance Z30.41 Active Problem Low back pain M54.5 Active Problem Bilateral headaches R51 Active Problem Urine ketones R82.4 Active Problem Bipolar 1 disorder F31.9 Active Problem Right-sided low back pain without sciatica M54.5 Active Problem Blood in urine R31.9 Active Medications No Known Medications Procedures Procedure Coding System Code Date No Charge CPT-4 48014 May 22, 2015 COMPLETE CBC W/AUTO DIFF WBC CPT-4 59649 May 22, 2015 ACUTE HEPATITIS PANEL CPT-4 93366 May 22, 2015 VENIPUNCT, ROUTINE* CPT-4 90399 May 22, 2015 COMPREHEN METABOLIC PANEL CPT-4 66974 May 22, 2015 Results Name Result Date Reference Range Unit Abnormality Flag ROUTINE VENIPUNCTURE Summary Purpose eClinicalWorks Submission
--- OUTSIDE RECORDS SUMMARY | 2017-04-08 10:12 | XMS REPORT ---
Author Author EAGLE ORTIZ [facility] e[employer] Address Unknown Phone Unavailable Care Team Providers Care Collar Tailor Name Role Phone EAGLE ORTIZ CP Unavailable Allergies No Known Allergies Problems Problem Type Condition Code Onset Dates Condition Status Problem Hordeolum externum 373.11 Active Problem Bipolar disorder, unspecified 296.80 Active Medications No Known Medications Results No Known Results Summary Purpose [employer]ClinicalWorks Submission
--- OUTSIDE RECORDS SUMMARY | 2017-04-08 10:12 | XMS REPORT ---
Author Author EAGLE ORTIZ [employer] Address Unknown Phone Unavailable Care Team Providers Care Care Management Coordinator Name Role Phone EAGLE ORTIZ CP Unavailable Allergies, Adverse Reactions, Alerts Substance Reaction Event Type Bactrim Info Not Available Drug Allergy Problems Problem Type Condition Code Onset Dates Condition Status Problem Bipolar 1 disorder F31.9 Active Assessment Neck muscle spasm M62.838 Active Problem Bilateral headaches R51 Active Problem Oral contraceptive pill surveillance Z30.41 Active Problem Environmental allergies Z91.09 Active Problem Blood in urine R31.9 Active Problem Urine ketones R82.4 Active Problem Low back pain M54.5 Active Problem Right-sided low back pain without sciatica M54.5 Active Medications Medication Code System Code Instructions Start Date End Date Status Dosage Cyclobenzaprine HCl [facility] [address]-75 10 mg Orally Three times a day as needed for muscle spasm Mar 18, 2016 Apr 17, 2016 1 tablet Procedures Procedure Coding System Code Date Office Visit, Est Pt., Level 3 CPT-4 73705 Mar 18, 2016 Vital Signs Date/Time: Mar 18, 2016 Cardiac Monitoring Heart Rate 90 bpm Weight 134.1 lbs Height 64 in BMI 23.02 Index Blood Pressure Diastolic 82 mmHg Blood Pressure Systolic 126 mmHg Results No Known Results Summary Purpose eClinicalWorks Submission
--- OUTSIDE RECORDS SUMMARY | 2017-04-08 10:13 | XMS REPORT ---
Author Author EAGLE ORTIZ Organization [employer] Address Unknown Phone Unavailable Care Team Providers Care Change Release Manager Name Role Phone EAGLE ORTIZ CP Unavailable Allergies, Adverse Reactions, Alerts Substance Reaction Event Type Bactrim Info Not Available Drug Allergy Problems Problem Type Condition Code Onset Dates Condition Status Problem Hordeolum externum 373.11 Active Assessment Vaginal bleeding N93.9 Active Problem Bipolar disorder, unspecified 296.80 Active Assessment Nexplanon removal Z30.8 Active Medications Medication Code System Code Instructions Start Date End Date Status Dosage Ortho-Cyclen (28) [facility] [address]-42 0.25-35 MG-MCG Orally Once a day Feb 1 tablet Procedures Procedure Coding System Code Date VENIPUNCT, ROUTINE* CPT-4 54378 Feb 27, 2015 REMOVE DRUG IMPLANT DEVICE CPT-4 23991 Feb 27, 2015 COMPLETE CBC W/AUTO DIFF WBC CPT-4 40359 Feb 27, 2015 Vital Signs Date/Time: Feb 27, 2015 Temperature 98.7 F Weight 125.0 lbs Height 64 in Wt Percentile 43.96 % BMI 21.45 Index Blood Pressure Diastolic 68 mmHg Blood Pressure Systolic 98 mmHg BMIPercentile 46.98 % Results Name Result Date Reference Range Unit Abnormality Flag ROUTINE VENIPUNCTURE Summary Purpose eClinicalWorks Submission
--- OUTSIDE RECORDS SUMMARY | 2017-04-08 10:13 | XMS REPORT ---
Author Author SUNDAR ELLIS [facility] eClinical[employer] Address Unknown Phone Unavailable Care Team Providers Care Parking Analyst Name Role Phone SUNDAR ELLIS CP Unavailable Allergies, Adverse Reactions, Alerts Substance Reaction Event Type Bactrim Info Not Available Drug Allergy Problems Problem Type Condition Code Onset Dates Condition Status Assessment Nausea R11.0 Active Assessment Well woman exam Z01.419 Active Assessment Bilateral headaches R51 Active Problem Oral contraceptive pill surveillance Z30.41 Active Problem Low back pain M54.5 Active Problem Bilateral headaches R51 Active Problem Urine ketones R82.4 Active Problem Bipolar 1 disorder F31.9 Active Problem Right-sided low back pain without sciatica M54.5 Active Problem Blood in urine R31.9 Active Assessment Routine screening for STI (sexually transmitted infection) Z11.3 Active Assessment Vaginal discharge N89.8 Active Assessment Dysmenorrhea N94.6 Active Assessment Low back pain M54.5 Active Assessment Oral contraceptive pill surveillance Z30.41 Active Medications Medication Code System Code Instructions Start Date End Date Status Dosage Ortho-Cyclen (28) [facility] [address]-90 0.25-35 MG-MCG Orally Once a day Feb 1 tablet Naproxen [facility] [address]-04 500 MG Orally every 12 hrs May 17, 2015Jun 1 tablet as needed Procedures Procedure Coding System Code Date CULTURE, BACTERIA, OTHER CPT-4 88405 May 21, 2015 No Charge CPT-4 96746 May 21, 2015 Preventive Care Est Pt. Age 18-39 CPT-4 02182 May 21, 2015 TRICHOMONAS ASSAY W/OPTIC CPT-4 53473 May 21, 2015 Vital Signs Date/Time: May 21, 2015 Temperature 98.1 F Weight 126.7 lbs Height 64 in BMI 21.75 Index Blood Pressure Diastolic 68 mmHg Blood Pressure Systolic 106 mmHg Cardiac Monitoring Heart Rate 84 bpm Results No Known Results Summary Purpose eClinicalWorks Submission
--- OUTSIDE RECORDS SUMMARY | 2017-04-08 10:13 | XMS REPORT ---
Author SARIAH Zuniga Organization [employer] Address Unknown Phone Unavailable Care Team Providers Care Transmission Inspector Name Role Phone SARIAH THORNE CP Unavailable Allergies, Adverse Reactions, Alerts Substance Reaction Event Type Bactrim Info Not Available Drug Allergy Problems Problem Type Condition Code Onset Dates Condition Status Assessment Sore throat J02.9 Active Problem Bipolar 1 disorder F31.9 Active Medications Medication Code System Code Instructions Start Date End Date Status Dosage Amoxicillin [facility] [address]-47 500 MG Orally 3 times a day Apr 01, 2015 Apr 11, 2015 1 tablet Ortho-Cyclen (28) [facility] [address]-19 0.25-35 MG-MCG Orally Once a day Feb 1 tablet Procedures Procedure Coding System Code Date Office Visit, Est Pt., Level 3 CPT-4 22038 Apr 01, 2015 STREP A ASSAY W/OPTIC CPT-4 31803 Apr 01, 2015 Vital Signs Date/Time: Apr 01, 2015 Temperature 98.5 F Weight 129.3 lbs Height 64 in BMI 22.19 Index Blood Pressure Diastolic 72 mmHg Blood Pressure Systolic 110 mmHg Cardiac Monitoring Heart Rate 108 bpm BMIPercentile 55.6 % Wt Percentile 51.94 % Results Name Result Date Reference Range Unit Abnormality Flag STREP A (IN HOUSE) Summary Purpose eClinicalWorks Submission
== END 2017-04-08 10:25 | disposition left against medical advice (07) ==
LOC: EDUNIT# 10:05 → ER 10:07
DX: O20.9 Hemorrhage in early pregnancy, unspecified (principal); Z3A.01 Less than 8 weeks gestation of pregnancy

== ENCOUNTER → 2017-04-09 | Outpatient (CLI) | payer BC | LOC: LAB 15:25 | PROVIDERS: ATTEND Obstetrics & Gynecology | DX: O20.0 Threatened abortion (principal) | CPT/HCPCS: 36415; 84702 ==

== ENCOUNTER → 2017-04-13 | Outpatient (CLI) | payer BC ==
[~2017-04-13] VITALS: Ht 162.6 cm; Wt 57.2 kg
[~2017-04-13] MED LIST changes: +LIDOCAINE 1% INJ 20 ML (XYLOCAINE) VIAL INJ ONE; +LIDOCAINE 1% INJ 20 ML (XYLOCAINE) VIAL ONE
[2017-04-13 10:45] VITALS: BP 112/68
[2017-04-13 11:13] VITALS: BP 110/70
--- NOTE | 2017-04-13 13:31 | Diagnostic Imaging Report ---
EXAMINATION: Ultrasound-guided biopsy of a breast mass. A metallic clip placed to magalie biopsy site. INDICATION: Left breast mass. CONSENT: Informed consent was obtained from the patient. The risks, benefits, potential complications and alternatives were reviewed and all questions answered to the patient's satisfaction. FINDINGS: Ultrasound images demonstrate a left breast mass at 2:30 o'clock position, 2 CM from the nipple.. PROCEDURE: After sterile preparation and draping, 1% lidocaine was utilized for local anesthesia. A 13-gauge guide needle was introduced under live ultrasound guidance to the level of the lesion. Good needle position was documented with ultrasound images. 14-gauge biopsy needle was utilized and core biopsies were performed. Multiple samples were obtained and sent to pathology. A metallic clip was placed to magalie the site of the biopsy. A subsequent mammogram is performed and confirms the proper positioning of the clip. The patient tolerated the procedure well with no immediate complications. IMPRESSION: Successful ultrasound-guided core biopsy of 30 o'clock position left breast mass. Dictated by: Dictated on workstation # [id number]
== END ==
LOC: RAD 10:33
PROVIDERS: ATTEND Family Medicine
DX: N63.21 Unspecified lump in the left breast, upper outer quadrant (principal)
CPT/HCPCS: 19083

== ENCOUNTER 2017-10-26 12:30 | Emergency (ER) | payer BC ==
[~2017-10-26] VITALS: Ht 165.1 cm; Wt 62.1 kg
[~2017-10-26 12:30] MED LIST changes: -LIDOCAINE 1% INJ 20 ML (XYLOCAINE) VIAL INJ ONE; -LIDOCAINE 1% INJ 20 ML (XYLOCAINE) VIAL ONE
--- OUTSIDE RECORDS SUMMARY | 2017-10-26 12:37 | XMS REPORT | Continuity of Care Document ---
Author Author [facility] Address Unknown Phone Unavailable Allergies Active Description Code Type Severity Reaction Onset Reported/Identified Relationship to Patient Clinical Status Yes No Known Drug Allergies [id number] Drug Allergy Unknown N/A 06/26/2010 Yes Bactrim Drug Allergy N/A N/A 02/13/2014 Yes sulfamethoxazole [id number] Drug Allergy Severe HIVES 04/24/2014 Yes trimethoprim [id number] Drug Allergy Severe HIVES 04/24/2014 Medications There is no data. Problems Date Dx Coded Attending Type Code [...] SOLOMON DO V74.5 STD SCREEN 12/30/2011 SOLOMON DO HARITHA [...] HARITHA K V74.5 STD SCREEN 12/30/2011 ZEN ASSEMBLER CRIMPER, MIGUEL A 616.10 VAGINITIS AND VULVOVAGINITIS UNSPECIFIED 12/30/2011 ZEN ASSEMBLER CRIMPER, MIGUEL A 626.4 IRREGULAR MENSTRUAL CYCLE 12/30/2011 ZEN ASSEMBLER CRIMPER, MIGUEL A V74.5 STD SCREEN 12/30/2011 SOLOMON DO HARITHA K 616.10 VAGINITIS AND VULVOVAGINITIS UNSPECIFIED 12/30/2011 SOLOMON DO HARITHA K 626.4 IRREGULAR MENSTRUAL CYCLE 12/30/2011 SOLOMON DO HARITHA K V74.5 STD SCREEN 12/30/2011 SOLOMON DO HARITHA K 616.10 VAGINITIS AND VULVOVAGINITIS UNSPECIFIED 12/30/2011 SOLOMON DO HARITHA K 626.4 IRREGULAR MENSTRUAL CYCLE 12/30/2011 SOLOMON DO, HARITHA K V74.5 STD SCREEN 12/30/2011 ZEN ASSEMBLER CRIMPER, MIGUEL A 616.10 VAGINITIS AND VULVOVAGINITIS UNSPECIFIED 12/30/2011 ZEN ASSEMBLER CRIMPER, MIGUEL A 626.4 IRREGULAR MENSTRUAL CYCLE 12/30/2011 ZEN ASSEMBLER CRIMPER, MIGUEL A V74.5 STD SCREEN 12/30/2011 MIGUEL ZALDIVAR APRN A 616.10 VAGINITIS AND VULVOVAGINITIS UNSPECIFIED 12/30/2011 MIGUEL ZALDIVAR APRN A 626.4 IRREGULAR MENSTRUAL CYCLE 12/30/2011 MIGUEL ZALDIVAR APRN A V74.5 STD SCREEN 01/27/2012 V25.02 Contraceptives 01/27/2012 V25.02 Contraceptives 01/27/2012 V25.02 Contraceptives 01/27/2012 V25.02 Contraceptives 01/27/2012 SOLOMON DO, HARITHA K V25.02 Contraceptives 01/27/2012 SOLOMON DO, HARITHA K V25.02 Contraceptives 01/27/2012 SOLOMON DO, HARITHA K V25.02 Contraceptives 01/27/2012 SOLOMON DO, HARITHA K V25.02 Contraceptives 01/27/2012 SOLOMON DO, HARITHA K V25.02 Contraceptives 01/27/2012 SOLOMON DO, HARITHA K V25.02 Contraceptives 01/27/2012 ZEN FERRER MIGUEL A V25.02 Contraceptives 01/27/2012 SOLOMON DO, HARITHA K V25.02 Contraceptives 01/27/2012 SOLOMON DO, HARITHA K V25.02 Contraceptives 01/27/2012 ZEN FERRER MIGUEL A V25.02 Contraceptives 01/27/2012 NENA ZALDIVAR APRNIDI A V25.02 Contraceptives 02/09/2012 296.80 BIPOLAR DISORDER NOS 02/09/2012 296.80 BIPOLAR DISORDER NOS 02/09/2012 296.80 BIPOLAR DISORDER NOS 02/09/2012 296.80 BIPOLAR DISORDER NOS 02/09/2012 NEHA DO HARITHA K 296.80 BIPOLAR DISORDER NOS 02/09/2012 SOLOMON DO, HARITHA K 296.80 BIPOLAR DISORDER NOS 02/09/2012 SOLOMON DO, HARITHA K 296.80 BIPOLAR DISORDER NOS 02/09/2012 SOLOMON DO, HARITHA K 296.80 BIPOLAR DISORDER NOS 02/09/2012 SOLOMON DO, HARITHA K 296.80 BIPOLAR DISORDER NOS 02/09/2012 SOLOMON DO, HARITHA K 296.80 BIPOLAR DISORDER NOS 02/09/2012 ZEN GALLARDOMalou MIGUEL A 296.80 BIPOLAR DISORDER NOS 02/09/2012 SOLOMON DO HARITHA K 296.80 BIPOLAR DISORDER NOS 02/09/2012 SOLOMON DO HARITHA K 296.80 BIPOLAR DISORDER NOS 02/09/2012 ZEN ASSEMBLER CRIMPER, MIGUEL A 296.80 BIPOLAR DISORDER NOS 02/09/2012 ZENMalou FERRER MIGUEL A 296.80 BIPOLAR DISORDER NOS 04/14/2012 V25.49 CONTRACEPTION SURVEILLANCE (REPEAT RX) 04/14/2012 V25.49 CONTRACEPTION SURVEILLANCE (REPEAT RX) 04/14/2012 V25.49 CONTRACEPTION SURVEILLANCE (REPEAT RX) 04/14/2012 V25.49 CONTRACEPTION SURVEILLANCE (REPEAT RX) 04/14/2012 HARITHA SOLOMON DO V25.49 CONTRACEPTION SURVEILLANCE (REPEAT RX) 04/14/2012 HARITHA SOLOMON DO V25.49 CONTRACEPTION SURVEILLANCE (REPEAT RX) 04/14/2012 SAHARA [...] UPPER RESPIRATORY INFECTION 06/02/2012 HARITHA SOLOMON DO 462 PHARYNGITIS ACUTE 06/02/2012 HARITHA SOLOMON DO 465.9 UPPER RESPIRATORY INFECTION 06/02/2012 HARITHA SOLOMON DO 462 PHARYNGITIS ACUTE 06/02/2012 HARITHA SOLOMON DO 465.9 UPPER RESPIRATORY INFECTION 06/02/2012 HARITHA SOLOMON DO K 462 PHARYNGITIS ACUTE 06/02/2012 SOLOMON DO, [...] K 465.9 UPPER RESPIRATORY INFECTION 06/02/2012 ZEN ASSEMBLER CRIMPER, MIGUEL A 462 PHARYNGITIS ACUTE 06/02/2012 ZEN ASSEMBLER CRIMPER, MIGUEL A 465.9 UPPER RESPIRATORY INFECTION 06/02/2012 SOLOMON DO, HARITHA K 462 PHARYNGITIS ACUTE 06/02/2012 SOLOMON DO, HARITHA K 465.9 UPPER RESPIRATORY INFECTION 06/02/2012 SOLOMON DO, HARITHA K 462 PHARYNGITIS ACUTE 06/02/2012 SOLOMON DO, HARITHA K 465.9 UPPER RESPIRATORY INFECTION 06/02/2012 ZEN ASSEMBLER CRIMPER, MIGUEL A 462 PHARYNGITIS ACUTE 06/02/2012 ZEN ASSEMBLER CRIMPER, MIGUEL A 465.9 UPPER RESPIRATORY INFECTION 06/02/2012 ZEN ASSEMBLER CRIMPER, MIGUEL A 462 PHARYNGITIS ACUTE 06/02/2012 ZEN ASSEMBLER CRIMPER, MIGUEL A 465.9 UPPER RESPIRATORY INFECTION 08/01/2012 [...] HARITHA K V74.1 TB SCREENING 08/01/2012 ZEN ASSEMBLER CRIMPER, MIGUEL A V74.1 TB SCREENING 08/01/2012 SOLOMON DO, HARITHA K V74.1 TB SCREENING 08/01/2012 SOLOMON DO, HARITHA K V74.1 TB SCREENING 08/01/2012 ZEN ASSEMBLER CRIMPER, MIGUEL A V74.1 TB SCREENING 08/01/2012 ZEN ASSEMBLER CRIMPER, MIGUEL A V74.1 TB SCREENING 08/10/2012 V03.89 MENINGOCOCCAL DX 08/10/2012 SOLOMON DO, HARITHA K V03.89 MENINGOCOCCAL DX 08/10/2012 SOLOMON DO, HARITHA K V03.89 MENINGOCOCCAL DX 08/10/2012 SOLOMON DO, HARITHA K V03.89 MENINGOCOCCAL DX 08/10/2012 SOLOMON DO, HARITHA K V03.89 MENINGOCOCCAL DX 08/10/2012 SOLOMON DO, HARITHA K V03.89 MENINGOCOCCAL DX 08/10/2012 SOLOMON DO, HARITHA K V03.89 MENINGOCOCCAL DX 08/10/2012 ZEN ASSEMBLER CRIMPER, MIGUEL A V03.89 MENINGOCOCCAL DX 08/10/2012 SOLOMON DO, HARITHA K V03.89 MENINGOCOCCAL DX 08/10/2012 SOLOMON DO, HARITHA K V03.89 MENINGOCOCCAL DX 08/10/2012 ZEN ASSEMBLER CRIMPER, MIGUEL A V03.89 MENINGOCOCCAL DX 08/10/2012 ZEN ASSEMBLER CRIMPER, MIGUEL A V03.89 MENINGOCOCCAL DX 01/24/2013 SOLOMON [...] HARITHA K V25.9 CONTRACEPTION MANAGEMENT 01/24/2013 ZEN ASSEMBLER CRIMPER, MIGUEL A V25.9 CONTRACEPTION MANAGEMENT 01/24/2013 ZEN ASSEMBLER CRIMPER, MIGUEL A V25.9 CONTRACEPTION MANAGEMENT 05/15/2013 SOLOMON DO HARITHA K 461.9 SINUSITIS ACUTE 05/15/2013 SOLOMON DO, HARITHA K 461.9 SINUSITIS ACUTE 05/15/2013 SOLOMON DO, HARITHA K 461.9 SINUSITIS ACUTE 05/15/2013 SOLOMON DO, HARITHA K 461.9 SINUSITIS ACUTE 05/15/2013 ZEN ASSEMBLER CRIMPER, MIGUEL A 461.9 SINUSITIS ACUTE 05/15/2013 SOLOMON DO, HARITHA K 461.9 SINUSITIS ACUTE 05/15/2013 SOLOMON DO, HARITHA K 461.9 SINUSITIS ACUTE 05/15/2013 ZEN ASSEMBLER CRIMPER, MIGUEL A 461.9 SINUSITIS ACUTE 05/15/2013 ZEN ASSEMBLER CRIMPER, MIGUEL A 461.9 SINUSITIS ACUTE 09/26/2013 SOLOMON DO, HARITHA K V06.1 TDAP DX 09/26/2013 SOLOMON DO, HARITHA K V06.1 TDAP DX 09/26/2013 ZEN ASSEMBLER CRIMPER, MIGUEL A V06.1 TDAP DX 09/26/2013 SOLOMON DO, HARITHA K V06.1 TDAP DX 09/26/2013 SOLOMON DO, HARITHA K V06.1 TDAP DX 09/26/2013 ZEN ASSEMBLER CRIMPER, MIGUEL A V06.1 TDAP DX 09/26/2013 ZEN ASSEMBLER CRIMPER, MIGUEL A V06.1 TDAP DX 10/22/2013 JOSE MANUEL EPSTEIN, CHRISTINE A Ot 682.6 CELLULITIS OF LEG 12/26/2013 ZEN FERRER, MIGUEL A 799.29 OTHER SIGNS AND SYMPTOMS INVOLVING EMOTIONAL STATE 12/26/2013 SOLOMON DO HARITHA K 799.29 OTHER SIGNS AND SYMPTOMS INVOLVING EMOTIONAL STATE 12/26/2013 SOLOMON DO, HARITHA K 799.29 OTHER SIGNS AND SYMPTOMS INVOLVING EMOTIONAL STATE 12/26/2013 ZENJEFFREY FERRER, MIGUEL A 799.29 OTHER SIGNS AND SYMPTOMS INVOLVING EMOTIONAL STATE 12/26/2013 ZEN ASSEMBLER CRIMPER, MIGUEL A 799.29 OTHER SIGNS AND SYMPTOMS INVOLVING EMOTIONAL STATE 02/13/2014 SOLOMON DO, HARITHA K 382.9 OTITIS MEDIA 02/13/2014 ZEN ASSEMBLER CRIMPER, MIGUEL A 382.9 OTITIS MEDIA 02/13/2014 ZEN ASSEMBLER CRIMPER, MIGUEL A 382.9 OTITIS MEDIA 04/23/2014 LUIS ENRIQUE [...] MIGUEL A 373.11 HORDEOLUM EXTERNUM 07/02/2014 ZEN APRN, MIGUEL A 373.11 HORDEOLUM EXTERNUM 07/19/2014 ZEN ASSEMBLER CRIMPER, MIGUEL A V25.09 CONTRACEPTIVE COUNSELING - GENERAL 07/19/2014 ZEN ASSEMBLER CRIMPER, MIGUEL A V25.09 CONTRACEPTIVE COUNSELING - GENERAL 08/06/2014 NENA ZALDIVAR APRNIDI A V25.5 IMPLANON INSERTION 08/09/2014 MIGUEL ZALDIVAR APRN A 461.1 ACUTE FRONTAL SINUSITIS 12/23/2014 JACKLYN NEVILLE ASSEMBLER CRIMPER Ot 558.9 NONINF GASTROENTERIT NEC 12/23/2014 JACKLYN NEVILLE ASSEMBLER CRIMPER Ot 787.03 VOMITING ALONE 12/23/2014 TEOFILO JEFF MOLDED FRAMES ASSEMBLER Ot 518.89 12/23/2014 TEOFILO JEFF MOLDED FRAMES ASSEMBLER Ot 795.51 03/02/2015 TEOFILO JEFF MOLDED FRAMES ASSEMBLER Ot 518.89 03/02/2015 TEOFILO JEFF MOLDED FRAMES ASSEMBLER Ot 795.51 03/02/2015 JACKLYN NEVILLE ASSEMBLER CRIMPER Ot Z09 2015 SARIAH LOPEZ DO Ot M54.5 LOW BACK PAIN 2015 SARIAH LOPEZ DO Ot R31.2 OTHER MICROSCOPIC HEMATURIA 2015 TEOFILO JEFF MOLDED FRAMES ASSEMBLER Ot 518.89 2015 TEOFILO JEFF MOLDED FRAMES ASSEMBLER Ot 795.51 07/03/2015 ALAYNA EPSTEIN, CELESTINE Tierney [...] CELESTINE Tierney Ot R19.7 DIARRHEA, UNSPECIFIED 07/19/2015 NURIA EPSTEIN, AZUL Aguirre Ot B34.9 VIRAL INFECTION, UNSPECIFIED 08/01/2015 CATHERINE EPSTEIN, SIXTO Bales Ot J06.9 ACUTE UPPER RESPIRATORY INFECTION, UNSPE 08/02/2015 CATHERINE EPSTEIN, SIXTO Bales Ot J06.9 12/11/2015 TEOFILO JEFF MOLDED FRAMES ASSEMBLER Ot 518.89 OTHER DISEASES OF LUNG, NEC 12/11/2015 TEOFILO JEFF MOLDED FRAMES ASSEMBLER Ot 795.51 NONSP RX TO TUBERCULIN SKIN TEST W/O ACT 04/12/2016 TEOFILO JEFF MOLDED FRAMES ASSEMBLER Ot 518.89 OTHER DISEASES OF LUNG, NEC 04/12/2016 TEOFILO JEFF MOLDED FRAMES ASSEMBLER Ot 795.51 NONSP RX TO TUBERCULIN SKIN TEST W/O ACT 04/12/2016 NURIA EPSTEIN, AZUL Aguirre Ot N39.0 URINARY TRACT INFECTION, SITE NOT SPECIF 04/12/2016 NURIA EPSTEIN, AZUL Aguirre Ot R35.0 FREQUENCY OF MICTURITION 04/14/2016 NURIA EPSTEIN, AZUL Aguirre Ot N39.0 URINARY TRACT INFECTION, SITE NOT SPECIF 04/14/2016 NURIA EPSTEIN, AZUL Aguirre Ot R35.0 FREQUENCY OF MICTURITION 07/17/2016 OTHER, UNLISTED Ot Z52.091 OTHER BLOOD DONOR, STEM CELLS 07/23/2016 OTHER, UNLISTED Ot Z52.091 OTHER BLOOD DONOR, STEM CELLS 08/12/2016 OTHER, UNLISTED Ot Z52.091 OTHER BLOOD DONOR, STEM CELLS 04/06/2017 TEOFILO JEFF MOLDED FRAMES ASSEMBLER Ot 518.89 OTHER DISEASES OF LUNG, NEC 04/06/2017 TEOFILO JEFF MOLDED FRAMES ASSEMBLER Ot 795.51 NONSP RX TO TUBERCULIN SKIN TEST W/O ACT 04/06/2017 OTHER, UNLISTED Ot Z52.091 OTHER BLOOD DONOR, STEM CELLS 04/07/2017 ANGELIKA TORRES DO Ot O92.29 OTH DISORDERS OF BREAST ASSOC W PREGNANC 04/07/2017 ANGELIKA TORRES DO Ot Z3A.01 LESS THAN 8 WEEKS GESTATION OF 04/07/2017 JACKLYN NEVILLE APRN Ot O20.9 HEMORRHAGE IN EARLY , UNSPECIFI 04/07/2017 JACKLYN NEVILLE APRN Ot R10.30 LOWER ABDOMINAL PAIN, UNSPECIFIED 04/07/2017 JACKLYN NEVILLE APRN Ot Z3A.01 LESS THAN 8 WEEKS GESTATION OF 04/07/2017 JACKLYN NEVILLE APRN Ot Z90.89 ACQUIRED ABSENCE OF OTHER ORGANS 04/07/2017 JACKLYN NEVILLE APRN Ot Z97.5 PRESENCE OF (INTRAUTERINE) CONTRACEPTIVE 04/08/2017 TEOFILO JEFF MOLDED FRAMES ASSEMBLER Ot 518.89 OTHER DISEASES OF LUNG, NEC 04/08/2017 TEOFILO JEFF MOLDED FRAMES ASSEMBLER Ot 795.51 NONSP RX TO TUBERCULIN SKIN TEST W/O ACT 04/08/2017 OTHER, UNLISTED Ot Z52.091 OTHER BLOOD DONOR, STEM CELLS 04/08/2017 ANGELIKA TORRES DO Ot O92.29 OTH DISORDERS OF BREAST ASSOC W PREGNANC 04/08/2017 ANGELIKA TORRES DO Ot Z3A.01 LESS THAN 8 WEEKS GESTATION OF 04/12/2017 SIXTO ALEXANDER MD Ot O20.9 HEMORRHAGE IN EARLY , UNSPECIFI 04/12/2017 SIXTO ALEXANDER MD Ot Z3A.01 LESS THAN 8 WEEKS GESTATION OF 04/14/2017 ANGELIKA TORRES DO Ot N63.21 UNSPECIFIED LUMP IN THE LEFT BREAST, UPP 04/23/2017 ANGELIKA TORRES DO Ot O92.29 OTH DISORDERS OF BREAST ASSOC W PREGNANC 04/23/2017 ANGELIKA TORRES DO Ot Z3A.01 LESS THAN 8 WEEKS GESTATION OF 04/28/2017 WYATT CALDERON DO Ot O20.0 THREATENED 05/14/2017 ANGELIKA TORRES DO Ot N63.21 UNSPECIFIED LUMP IN THE LEFT BREAST, UPP Procedures Code Description [place] [address] THERAPUTIC INJ SQ/IM 04/14/2012 J1055 DEPO-PROVERA INJ 150 MG 04/14/2012 09348 URINE TEST (IN- HOUSE) 04/14/2012 76382 STREP A (IN-HOUSE) 06/02/2012 21514 TB TEST INTRADERMAL 08/01/2012 35252 URINE TEST (IN- HOUSE) 09/26/2012 18108 THERAPUTIC INJ SQ/IM 09/26/2012 J1050 DEPO PROVERA 09/26/2012 29567 GC/CHLAM URINE (STATE) 01/24/2013 67506 URINE TEST (IN- HOUSE) 01/24/2013 83234 THERAPUTIC INJ SQ/IM 01/31/2013 J1050 DEPO PROVERA 01/31/2013 02734 URINE TEST (IN- HOUSE) 01/31/2013 20316 URINE TEST (IN- HOUSE) 04/27/2013 J1050 DEPO PROVERA 04/27/2013 80270 THERAPUTIC INJ SQ/IM 04/27/2013 91888 THERAPUTIC INJ SQ/IM 07/21/2013 J1050 DEPO PROVERA 07/21/2013 67722 TEST, URINE (IN- HOUSE) 07/21/2013 J1050 DEPO PROVERA 10/17/2013 52196 TEST, URINE (IN- HOUSE) 10/17/2013 09846 THERAPUTIC INJ SQ/IM 10/17/2013 31028 THERAPUTIC INJ SQ/IM 01/24/2014 J1050 DEPO PROVERA 01/24/2014 63400 TEST, URINE (IN- HOUSE) 01/24/2014 Results Test Result Range Urine beta human chorionic gonadotropin (hCG) measurement - 04/12/16 08:15 Urine beta human chorionic gonadotropin (hCG) measurement NEGATIVE NEGATIVE Complete urinalysis with reflex to culture - 04/12/16 08:15 Urine color determination RED NRG Urine clarity determination VERY CLOUDY NRG Urine pH measurement by test strip 6 5-9 Specific gravity of urine by test strip 1.020 1.016- 1.022 Urine protein assay by test strip, semi-quantitative [...] 04/12/16 08:15 URINE CULTURE RESULTS <10,000/ML NRG Urine Culture, Routine - 06/16/16 12:26 Urine Culture, Routine Note Serum or plasma choriogonadotropin ( test) detection - 07/16/16 17:50 Serum or plasma choriogonadotropin ( test) detection NEGATIVE NEGATIVE Complete urinalysis with reflex to culture - 04/07/17 15:20 Urine color determination YELLOW NRG Urine clarity determination CLEAR NRG Urine pH measurement by test strip 6 5-9 Specific gravity of urine by test strip 1.015 1.016- 1.022 Urine protein assay by test strip, semi-quantitative NEGATIVE NEGATIVE Urine glucose detection by automated test strip NEGATIVE NEGATIVE Erythrocytes detection in urine sediment by light microscopy 4+ NEGATIVE Urine ketones detection by automated test strip NEGATIVE NEGATIVE Urine nitrite detection by test strip NEGATIVE NEGATIVE Urine total bilirubin detection by test strip NEGATIVE NEGATIVE Urine urobilinogen measurement by automated test strip (mass/volume) NORMAL NORMAL Urine leukocyte esterase detection by dipstick NEGATIVE NEGATIVE Automated urine sediment erythrocyte count by microscopy (number/high power field) [HPF] NRG Automated urine sediment leukocyte count by microscopy (number/high power field ) [HPF] NRG Bacteria detection in urine sediment by light microscopy FEW NRG Squamous epithelial cells detection in urine sediment by light microscopy 5-10 NRG Crystals detection in urine sediment by light microscopy NONE NRG Casts detection in urine sediment by light microscopy NONE NRG Mucus detection in urine sediment by light microscopy NEGATIVE NRG Complete urinalysis with reflex to culture NO NRG Complete blood count (CBC) with automated white blood cell (WBC) differential - 04/07/17 15:25 Blood leukocytes automated count (number/volume) 6.9 10*3/uL 4.3-11.0 Blood erythrocytes automated count (number/volume) 4.07 10*6/uL 4.35-5.85 Venous blood hemoglobin measurement (mass/volume) 12.7 g/dL 11.5-16.0 Blood hematocrit (volume fraction) 36 % 35-52 Automated erythrocyte mean corpuscular volume 89 [foz_us] 80-99 Automated erythrocyte mean corpuscular hemoglobin (mass per erythrocyte) 31 pg 25-34 Automated erythrocyte mean corpuscular hemoglobin concentration measurement ( mass/volume) 35 g/dL 32-36 Automated erythrocyte distribution width ratio 12.1 % 10.0-14.5 Automated blood platelet count (count/volume) 276 10*3/uL 130-400 Automated blood platelet mean volume measurement 9.7 [foz_us] 7.4-10.4 Automated blood neutrophils/100 leukocytes 63 % 42-75 Automated blood lymphocytes/100 leukocytes 26 % 12-44 Blood monocytes/100 leukocytes 10 % 0-12 Automated blood eosinophils/100 leukocytes 1 % 0-10 Automated blood basophils/100 leukocytes 0 % 0-10 Blood neutrophils automated count (number/volume) 4.4 10*3 1.8-7.8 Blood lymphocytes automated count (number/volume) 1.8 10*3 1.0-4.0 Blood monocytes automated count (number/volume) 0.7 10*3 0.0-1.0 Automated eosinophil count 0.1 10*3/uL 0.0-0.3 Automated blood basophil count (count/volume) 0.0 10*3/uL 0.0-0.1 Serum or plasma choriogonadotropin measurement (units/volume) - 04/07/17 15:25 Serum or plasma choriogonadotropin measurement (units/volume) 1859 m [iU]/mL <5 ABO+Rh group - 04/07/17 15:25 ABO+Rh group AP NR Transfusion band number [id number] [facility] Serum or plasma choriogonadotropin measurement (units/volume) - 04/09/17 15:37 Serum or plasma choriogonadotropin measurement (units/volume) 2346 m [iU]/mL <5 CULTURE, GENITAL - 06/24/17 17:35 CULTURE, GENITAL SEE NOTE NR THYROID ANALYZER - 09/29/17 14:09 TSH 2.19 mIU/L NRG CULTURE, GENITAL - 09/29/17 14:09 CULTURE, GENITAL SEE NOTE NRG A1C - 09/29/17 14:09 HEMOGLOBIN A1c 4.6 % of total Hgb <5.7 [employer] PAP RFX HPV mRNA E6/E7 - 09/29/17 14:09 CLINICAL INFORMATION: NRG LMP: 09/13/17 NRG PREV. PAP: NRG PREV. BX: NRG SOURCE: Cervix NRG STATEMENT OF ADEQUACY: NRG INTERPRETATION/RESULT: NRG ASSISTANT PROFESSOR OF GERMAN: NRG INFECTION: NRG COMMENT NRG Encounters ACCT No. Visit Date/Time Discharge Status Pt. Type Provider Facility Loc./Unit Complaint [id number] 08/09/2014 10:08:00 08/09/2014 23:59:59 CLS Outpatient MIGUEL ZALDIVAR APRN [id number] 07/19/2014 15:42:00 07/19/2014 23:59:59 CLS Outpatient MIGUEL ZALDIVAR APRN [id number] 02/13/2014 18:42:00 02/13/2014 23:59:59 CLS Outpatient HARITHA SOLOMON DO [id number] 01/24/2014 17:34:00 01/24/2014 23:59:59 CLS Outpatient HARITHA SOLOMON DO [id number] 12/26/2013 14:17:00 12/26/2013 23:59:59 CLS Outpatient MIGUEL ZALDIVAR APRN [id number] 10/17/2013 08:20:00 10/17/2013 23:59:59 CLS Outpatient HRAITHA SOLOMON DO [id number] 09/26/2013 14:44:00 09/26/2013 23:59:59 CLS Outpatient HARITHA SOLOMON DO [id number] 07/21/2013 12:11:00 07/21/2013 23:59:59 CLS Outpatient HARITHA SOLOMON DO [id number] 05/15/2013 18:43:00 05/15/2013 23:59:59 CLS Outpatient HARITHA SOLOMON DO [id number] 04/27/2013 15:32:00 04/27/2013 23:59:59 CLS Outpatient HARITHA SOLOMON DO [id number] 01/31/2013 15:06:00 01/31/2013 23:59:59 CLS Outpatient HARITHA SOLOMON DO [id number] 08/01/2012 15:07:00 08/01/2012 23:59:59 CLS Outpatient [id number] 06/02/2012 14:03:00 06/02/2012 23:59:59 CLS Outpatient [id number] 04/14/2012 15:37:00 04/14/2012 23:59:59 CLS Outpatient [id number] 09/26/2012 15:46:00 Document Registration [id number] 08/10/2012 14:24:48 RECURRING [facility] 12/24/2014 02:13:03 ACT Document Registration [id number] 09/29/2017 13:00:00 09/29/2017 23:59:59 [facility] [id number] 09/29/2017 13:00:00 Document Registration [id number] 06/24/2017 16:30:00 Document Registration [id number] 06/18/2016 03:07:00 Document Registration [id number] 04/13/2017 10:33:00 04/13/2017 23:59:59 CLS Outpatient ANGELIKA TORRES DO [facility] RAD BREAST LUMP [id number] 04/09/2017 15:25:00 04/09/2017 23:59:59 CLS Outpatient CALDERONWYATT Mazariegos DO [facility] LAB O20.0 [id number] 04/08/2017 10:07:00 04/08/2017 10:25:00 DIS Outpatient SIXTO ALEXANDER MD [facility] ER STILL BLEEDING,CRAMPING-- 6 WEEKS PG [id number] 04/07/2017 15:03:00 04/07/2017 16:15:00 DIS Emergency JACKLYN NEVILLE APRN [facility] ER 6 WKS ;SPOTTING [id number] 04/06/2017 10:55:00 04/06/2017 23:59:59 CLS Outpatient ANGELIKA TORRES DO [facility] RAD LEFT BREAST LUMP [id number] 07/16/2016 17:43:00 07/16/2016 23:59:59 CLS Outpatient OTHER, UNLISTED [facility] LAB ICD-10 CODE: Z52.091 [id number] 04/12/2016 08:11:00 04/12/2016 10:13:00 DIS Emergency NURIA EPSTEIN, AZUL Aguirre [facility] ER BACK PAIN/BLOOD IN URINE [id number] 08/01/2015 05:57:00 08/01/2015 08:35:00 DIS Emergency CATHERINE EPSTEIN, SIXTO Baels [facility] ER SOB,SORE THROAT [id number] 07/19/2015 07:12:00 07/19/2015 07:52:00 DIS Emergency NURIA EPSTEIN, AZUL Aguirre [facility] ER DENTAL PAIN/GUMS SWELLING [id number] 07/06/2015 15:42:00 07/06/2015 19:03:00 DIS Emergency ALAYNA EPSTEIN, CELESTINE Tierney [facility] ER ABD/BACK PAIN/ VOMITING [id number] 07/03/2015 00:29:00 07/03/2015 02:51:00 DIS Emergency ALAYNA EPSTEIN, CELESTINE Tireney [facility] ER ABD PAIN [id number] 04/01/2015 21:16:00 2015 00:14:00 DIS Emergency SARIAH LOPEZ DO [facility] ER BACK PAIN [id number] 03/02/2015 16:18:00 03/02/2015 17:38:00 DIS Emergency JACKLYN NEVILLE APRN [facility] ER [id number] 12/23/2014 16:00:00 12/23/2014 17:39:00 DIS Emergency JACKLYN NEVILLE APRN [facility] ER VOMITING [id number] 12/06/2014 11:41:00 12/06/2014 23:59:59 CLS Outpatient TEOFILO JEFF MOLDED FRAMES ASSEMBLER [facility] RAD POSITIVE TB SKIN TEST [id number] 04/25/2014 18:47:00 04/25/2014 19:16:00 DIS Emergency GABRIELA JOHNSON DO [facility] ER WOUND CHECK [id number] 04/24/2014 18:49:00 04/24/2014 19:25:00 DIS Emergency LUIS ENRIQUE SMITH [facility] ER WOUND CHECK [id number] 04/23/2014 19:44:00 04/23/2014 23:59:59 CLS Emergency LUIS ENRIQUE SMITH [facility] ER CAT BITE [id number] 10/22/2013 23:22:00 10/22/2013 23:34:00 DIS Emergency CHRISTINE RICHARD MD [facility] ER POSS SPIDER BITE [id number] 06/26/2010 07:40:00 Document Registration
--- OUTSIDE RECORDS SUMMARY | 2017-10-26 12:37 | XMS REPORT ---
Author Author BRIAN ANGELIKA Organization [facility] Address [address] [place] [address] Care Team Providers Care Thermostat Maker Name Role Phone ANGELIKA TORRES Unavailable PROBLEMS Type Condition ICD9-CM Code YAK65-FK Code Onset Dates Condition Status SNOMED Code Problem Environmental allergies Z91.09 Active 999900422 Problem Bilateral headaches R51 Active [id number] Problem Bipolar 1 disorder F31.9 Active [id number] ALLERGIES No Information ENCOUNTERS Encounter Location Date Diagnosis [place] [id number] [address] September, Well woman exam with routine gynecological exam Z01.419 [facility] [address] [address] Jul, [facility] [address] [address] Jun, [facility] [address] [place] [id number] [place] [address] 15 Jun, 2017 Possible exposure to STD Z20.2 [place] [address] [address] Mar, [facility] [address] [address] Mar, [facility] [address] [address] Mar, Left breast lump N63.20 [place] [address] [address] Mar, Encounter for test, result unknown Z32.00 [facility] [address] [address] 07 Jun, 2016 Dysuria R30.0 and Acute cystitis with hematuria N30.[address] [address] Mar, Neck muscle spasm M62.838 [facility] [address] [address] Feb, Bronchitis J40 [facility] [address] [address] Feb, Environmental allergies Z91.09 ; Cough R05 and Postnasal drip R09.[address] [address] Aug, Fatigue R53.[address] [address] Jul, Herpes labialis B00.[address] [address] 02 Jul, 2015 Oral contraceptive pill surveillance Z30.41 ; Irregular menses N92.6 ; Dysmenorrhea N94.6 and Lower abdominal pain R10.[address] [address] 27 May, 2015 Right otitis media H66.91 and Sinusitis J32.9 [place] [address] [address] May, Right-sided low back pain without sciatica M54.5 and Routine screening for STI (sexually transmitted infection) Z11.[address] [address] 12 May, 2015 Well woman exam Z01.419 ; Bilateral headaches R51 ; Nausea R11.0 ; Oral contraceptive pill surveillance Z30.41 ; Dysmenorrhea N94.6 ; Vaginal discharge N89.8 ; Routine screening for STI (sexually transmitted infection) Z11.3 and Low back pain M54.5 [place] [id number] [place] [address] May, Right-sided low back pain without sciatica M54.5 ; Blood in urine R31.9 and Urine ketones R82.4 [place] [address] [place] [id number] [place] [address] Apr, Abscess L02.91 and Encounter for incision and drainage procedure Z01.89 [place] [address] [place] [id number] [place] [address] Mar, Sore throat J02.9 [place] [address] [address] Feb, [place] [address] [place] [id number] [place] [address] Feb, Vaginal bleeding N93.9 and Nexplanon removal Z30.8 [place] [address] [place] [id number] [place] [address] Dec, [place] [address] [address] Dec, Upper respiratory infection 465.9 [place] [address] [place] [id number] [place] [address] Nov, Bronchitis 490 [place] [address] [place] [id number] [place] [address] Nov, Irregular menstrual bleeding 626.4 [place] [address] [place] [id number] [place] [address] Nov, Acute upper respiratory infection 465.9 [place] [address] [place] [id number] [place] [address] Oct, Irregular bleeding 626.4 [place] [address] [place] [id number] [place] [address] Aug, [place] [address] [facility] [id number] [place] [address] 13 Aug, 2014 [facility] [place] [facility] [address] [id number] [place] [address] 30 Jul, 2014 [facility] [place] [facility] [address] [id number] [place] [address] 30 Jul, 2014 [facility] [place] [facility] [address] [id number] [place] [address] Jul, [facility] [place] [facility] [address] [id number] [place] [address] 24 Jul, 2014 [facility] [place] [facility] [address] [id number] [place] [address] Jul, [facility] [place] [facility] [address] [id number] [place] [address] Jul, [facility] [place] [facility] [address] [id number] [place] [address] Jul, [facility] [place] [facility] [address] [id number] [place] [address] 10 Jul, 2014 [facility] [place] [facility] [address] [id number] [place] [address] Jun, 2014 [facility] [place] [facility] [address] [id number] [place] [address] Jun, [facility] [place] [facility] [address] [id number] [place] [address] Apr, [facility] [place] [facility] [address] [id number] [place] [address] Apr, [facility] [place] [facility] [address] [id number] [place] [address] Apr, [facility] [place] [facility] [address] [id number] [place] [address] 16 Apr, 2014 [facility] [place] [facility] [address] [id number] [place] [address] Apr, [facility] [place] [facility] [address] [id number] [place] [address] Feb, [facility] [place] [facility] [address] [id number] [place] [address] Feb, [facility] [place] [facility] [address] [id number] [place] [address] Jan, [facility] [place] [facility] [address] [id number] [place] [address] Jan, [facility] [place] [facility] [address] [id number] [place] [address] Dec, [facility] [place] [facility] [address] [id number] [place] [address] Dec, [facility] [place] [facility] [address] [id number] [place] [address] Oct, [facility] [place] [facility] [address] [id number] [place] [address] Oct, [facility] [place] [facility] [address] [id number] [place] [address] Oct, [facility] [place] [facility] [address] [id number] [place] [address] Oct, [facility] [place] [facility] [address] [id number], [place] [address] Oct, [facility] [place] [facility] [address] [id number], [place] [address] Oct, [facility] [place] [facility] [address] [id number] [place] [address] September, [facility] [place] [facility] [address] [id number] [place] [address] September, [facility] [place] [facility] [address] [id number] [place] [address] September, [facility] [place] [facility] [address] [id number] [place] [address] September, [facility] [place] [facility] [address] [id number] [place] [address]- [address] Aug, [facility] [place] [facility] [address] [id number] [place] [address]- [address] Aug, [facility] [place] [facility] [address] [id number] [place] [address]- [address] Aug, [facility] [place] [facility] [address] [id number] [place] [address] Aug, [facility] [place] [facility] [address] [id number] [place] [address]- [address] Jul, [facility] [place] [facility] [address] [id number] [place] [address] Jul, [facility] [place] [facility] [address] [id number] [place] [address]- [address] May, [facility] [place] [facility] [address] [id number] [place] [address]- [address] May, [facility] [place] [facility] [address] [id number] [place] [address]- [address] May, [facility] [place] [facility] [address] [facility] [id number] [place] [address]- [address] May, [facility] [place] [facility] [address] [id number] [place] [address]- [address] Apr, [facility] [place] [facility] [address] [id number] [place] [address]- [address] Apr, [facility] [place] [facility] [address] [id number] [place] [address]- 2010 27 Jan, 2013 [facility] [place] [facility] [address] [id number] [place] [address] 24 Jan, 2013 [facility] [place] [facility] [address] [id number] [place] [address]- [address] 17 Jan, 2013 [facility] [place] [facility] [address] [id number] [place] [address]- [address] Jan, [facility] [address] [id number] [place] [address]- [address] September, [facility] [place] [facility] [address] [id number] [place] [address]- 89[address] Aug, [facility] [id number] [place] [address], [place] [address]- [address] Jul, [facility] [address] [id number] [place] [address]- [address] May, [facility] [address] [id number] [place] [address]- 495[address] Apr, [facility] [address] [id number] [place] [address] Apr, [facility] [address] [id number] [place] [address]- 09[address] Feb, [facility] [address] [id number] [place] [address]- 2273 Feb, [facility] [address] [id number] [place] [address]- [address] Jan, [facility] [place] [facility] [address] [id number] [place] [address]- [address] Jan, [facility] [place] [facility] [address] [id number] [place] [address]- [address] Dec, [facility] [place] [facility] [address] [id number] [place] [address] Dec, [facility] [place] [facility] [address] [id number] [place] [address]- [address] Dec, [facility] [place] [facility] [address] [id number] [place] [address] Dec, [facility] [place] [facility] [address] [id number] [place] [address] Dec, [facility] [address] [facility] [id number] [place] [address]- [address] Dec, IMMUNIZATIONS No Known Immunizations SOCIAL HISTORY Never Assessed REASON FOR VISIT FNA Order PLAN OF CARE VITAL SIGNS MEDICATIONS No Known Medications RESULTS No Results PROCEDURES No Known procedures INSTRUCTIONS MEDICATIONS ADMINISTERED No Known Medications MEDICAL (GENERAL) HISTORY Type Description Date Surgical History tonsillectomy 2010
--- NOTE | 2017-10-26 12:46 | ED Abdominal Pain ---
General Stated Complaint: KIDNEY PAIN History of Present Illness Date Seen by Provider: Oct 26, 2017 Time Seen by Provider: 12:43 Initial Comments The patient is a 22-year-old female who presents to the emergency room with complaints of right sided back and flank pain that started at 1100 today. The patient reports "I feel like it's my right kidney". She does report frequent urinary tract infections. She denies any nausea, vomiting, abdominal pain, or hematuria. Timing/Duration: 1-3 Hours Severity/Quality: Mild Location: Flank Radiation: Back, Flank Activities at Onset: None Modifying Factors: Worsens With Analgesics, Worsens With Antacids Associated Symptoms: Back Pain; No Nausea/Vomiting Allergies and Home Medications Allergies Coded Allergies: sulfamethoxazole (Unverified Allergy, Severe, HIVES, 04/24/14) trimethoprim (Unverified Allergy, Severe, HIVES, 04/24/14) Home Medications Cefuroxime Axetil 500 Mg Tablet, 500 MG PO BID Prescribed by: JACKLYN NEVILLE on 10/26/17 1405 Patient Home Medication List Home Medication List Reviewed: Yes Review of Systems Constitutional: see HPI; No chills EENTM: See HPI; No Blurred Vision Respiratory: See HPI; Denies Cough Cardiovascular: See HPI; Denies Chest Pain, Denies Palpitations, Denies Syncope Gastrointestinal: See HPI; Denies Abdominal Pain, Denies Diarrhea, Denies Nausea, Denies Vomiting Genitourinary: See HPI; Denies Frequency, Denies Flank Pain, Denies Hematuria, Denies Pain Musculoskeletal: No see HPI, No back pain, No gout, No joint pain Skin: see HPI; No change in color, No change in hair/nails Psychiatric/Neurological: See HPI; Denies Anxiety, Denies Depressed Endocrine: See HPI; Denies Excessive Sweating, Denies Flushing Hematologic/Lymphatic: See HPI; Denies Anemia, Denies Blood Clots (management to) All Other Systems Reviewed Negative Unless Noted: Yes Past Lkwiqaq-Lkzphj-Aaomcl Hx Past Med/Social Hx: Reviewed Nursing Past Med/Soc Hx Patient Social History 2nd Hand Smoke Exposure: No Recent Foreign Travel: No Contact w/Someone Who Travel: No Recent Hopitalizations: No Immunizations Up To Date Tetanus Booster (TDap): Less than 5yrs Seasonal Allergies Seasonal Allergies: No Past Medical History Surgeries: Yes Adenoidectomy, Tonsillectomy Respiratory: No Cardiac: No Neurological: No Reproductive Disorders: No 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 Sexually Transmitted Disease: No Gastrointestinal: No Musculoskeletal: No Endocrine: No Cancer: No Psychosocial: No Integumentary: No Blood Disorders: No Family Medical History Reviewed Nursing Family Hx Cancer Physical Exam Vital Signs Vital Signs - First Documented 10/26/17 12:35 Temp 97.6 Pulse 71 Resp 16 B/P (MAP) 103/64 (77) O2 Delivery Room Air Capillary Refill : General Appearance: WD/WN, no apparent distress HEENT: normal ENT inspection, TMs normal, pharynx normal Neck: full range of motion, supple, normal inspection Respiratory: chest non-tender, lungs clear, normal breath sounds Cardiovascular: normal peripheral pulses, regular rate, rhythm, no murmur Gastrointestinal: normal bowel sounds, soft, no organomegaly, no pulsatile mass , tenderness (rlq) Extremities: normal range of motion, non-tender Back: normal inspection, CVA tenderness (R) Neurologic/Psychiatric: alert, normal mood/affect, oriented x 3 Skin: normal color, warm/dry Lymphatic: no adenopathy Progress/Results/Core Measures Results/Orders Lab Results Laboratory Tests Test 10/26/17 12:45 10/26/17 13:25 Range/Units White Blood Count 8.5 4.3-11.0 10^3/uL Red Blood Count 4.33 L 4.35-5.85 10^6/uL Hemoglobin 13.2 11.5-16.0 G/DL Hematocrit 39 35-52 % Mean Corpuscular Volume 89 80-99 FL Mean Corpuscular Hemoglobin 30 25-34 PG Mean Corpuscular Hemoglobin Concent 34 32-36 G/DL Red Cell Distribution Width 12.1 10.0-14.5 % Platelet Count 311 130-400 10^3/uL Mean Platelet Volume 10.0 7.4-10.4 FL Neutrophils (%) (Auto) 65 42-75 % Lymphocytes (%) (Auto) 21 12-44 % Monocytes (%) (Auto) 11 0-12 % Eosinophils (%) (Auto) 2 0-10 % Basophils (%) (Auto) 0 0-10 % Neutrophils # (Auto) 5.6 1.8-7.8 X 10^3 Lymphocytes # (Auto) 1.8 1.0-4.0 X 10^3 Monocytes # (Auto) 1.0 0.0-1.0 X 10^3 Eosinophils # (Auto) 0.1 0.0-0.3 10^3/uL Basophils # (Auto) 0.0 0.0-0.1 10^3/uL Sodium Level 141 135-145 MMOL/L Potassium Level 3.9 3.6-5.0 MMOL/L Chloride Level 111 H 98-107 MMOL/L Carbon Dioxide Level 24 21-32 MMOL/L Anion Gap 6 5-14 MMOL/L Blood Urea Nitrogen 9 7-18 MG/DL Creatinine 0.76 0.60-1.30 MG/DL Estimat Glomerular Filtration Rate > 60 BUN/Creatinine Ratio 12 Glucose Level 97 70-105 MG/DL Calcium Level 9.1 8.5-10.1 MG/DL Total Bilirubin 0.4 0.1-1.0 MG/DL Aspartate Amino Transf (AST/SGOT) 18 5-34 U/L Alanine Aminotransferase (ALT/SGPT) 18 0-55 U/L Alkaline Phosphatase 57 40-136 U/L Total Protein 7.2 6.4-8.2 GM/DL Albumin 4.3 3.2-4.5 GM/DL Urine Color YELLOW Urine Clarity SLIGHTLY CLOUDY Urine pH 6.5 5-9 Urine Specific Pedro 1.015 L 1.016-1.022 Urine Protein 2+ H NEGATIVE Urine Glucose (UA) NEGATIVE NEGATIVE Urine Ketones NEGATIVE NEGATIVE Urine Nitrite POSITIVE H NEGATIVE Urine Bilirubin NEGATIVE NEGATIVE Urine Urobilinogen NORMAL NORMAL MG/DL Urine Leukocyte Esterase 2+ H NEGATIVE Urine RBC (Auto) 4+ H NEGATIVE Urine RBC 2-5 H /HPF Urine WBC >100 H /HPF Urine Squamous Epithelial Cells 5-10 /HPF Urine Crystals NONE /LPF Urine Bacteria LARGE H /HPF Urine Casts NONE /LPF Urine Mucus NEGATIVE /LPF Urine Culture Indicated YES My Orders Orders - JACKLYN [place] CLINICAL SPECIALIST Cbc With Automated Diff (10/26/17 12:37) Comprehensive Metabolic Panel (10/26/17 12:37) Ua Culture If Indicated (10/26/17 12:37) Urine Bedside (10/26/17 12:37) Iv Heplock-Insert (Order) (10/26/17 12:37) Ns Iv 1000 Ml (Sodium Chloride 0.9%) (10/26/17 13:30) Ct Abdomen/Pelvis W (10/26/17 13:30) Iohexol Injection (Omnipaque 350 Mg/Ml 1 (10/26/17 13:45) Ns (Ivpb) (Sodium Chloride 0.9%) (10/26/17 13:45) Urine Culture (10/26/17 13:25) Ceftriaxone Injection (Rocephin Injectio (10/26/17 14:00) Medications Given in ED Current Medications Medications Dose Ordered Sig/Deanna Route Start Time Stop Time Status Last Admin Dose Admin Ceftriaxone Sodium 1000 mg/ Sodium Chloride 50 ml @ 100 mls/hr ONCE ONCE IV 10/26/17 14:00 10/26/17 14:29 10/26/17 14:05 100 MLS/HR Iohexol 100 ml ONCE ONCE IV 10/26/17 13:45 10/26/17 13:46 DC 10/26/17 13:46 100 ML Sodium Chloride 250 ml ONCE ONCE IV 10/26/17 13:45 10/26/17 13:46 DC 10/26/17 13:46 80 ML Sodium Chloride 1,000 ml ONCE ONCE IV 10/26/17 13:30 10/26/17 13:31 DC 10/26/17 13:24 1,000 ML Vital Signs/I&O 10/26/17 12:35 Temp 97.6 Pulse 71 Resp 16 B/P (MAP) 103/64 (77) O2 Delivery Room Air Diagnostic Imaging Diagonstic Imaging: CT Comments NAME: MOLLY CRAWFORD [facility] REC#: [id number] PT STATUS: REG ER : 1995 PHYSICIAN: JACKLYN [place] APRN ADMIT DATE: 10/26/17/ER Draft Date of Exam:10/26/17 CT ABDOMEN/PELVIS W PROCEDURE: CT abdomen and pelvis with contrast. TECHNIQUE: Multiple contiguous axial images were obtained through the abdomen and pelvis after administration of intravenous contrast. INDICATION: Right posterior kidney pain x2 hours. CORRELATION STUDY: 07/03/2015. FINDINGS: LOWER THORAX: Clear. LIVER: Unremarkable. GALLBLADDER: Present and unremarkable. No bile duct dilatation. SPLEEN: Unremarkable. PANCREAS: There is suggestion of very slight prominent appearance about the pancreatic head. Definitive mass lesion or otherwise inflammatory changes do not appear to be present. ADRENAL GLANDS: Unremarkable. KIDNEYS: There are some minimal areas of striated enhancement about the renal parenchyma slightly greater on the right. Otherwise unremarkable appearance. Collecting systems are unremarkable. No hydronephrosis. ABDOMINAL AORTA: Unremarkable, nonaneurysmal. GASTROINTESTINAL TRACT: What appears be the appendix is projecting medially from the cecum in the right hemipelvis. The appendix appears to be largely folded on itself and not well evaluated. The visualized portions do demonstrate what appears to be gas within the lumen and definitive inflammatory change is not otherwise suggested. Densities in the right hemipelvis appear to be migratory and likely within distal small bowel. No suggestion for obstruction. URINARY BLADDER: Relatively decompressed but otherwise unremarkable. REPRODUCTIVE: There is presence of small amount of free pelvic fluid. There is a curvilinear area of enhancement in the right adnexa likely reflective of an involuting cyst measuring 18 mm. Slight ill-defined appearance about the fundal aspect of the uterus. OSSEOUS STRUCTURES: No acute abnormality. OTHER: None. IMPRESSION: 1. Negative for obstructive uropathy. Very slight asymmetric enhancement about the renal parenchyma particularly the right kidney. This may be a normal variation. This can also be seen with underlying urinary tract infection/pyelonephritis. Correlation with urinary tract analysis. 2. There is what appears to be likely nearly 2 cm right adnexal cyst with presence of free pelvic fluid. This could be reflective of a ruptured cyst. Pelvic sonogram imaging would be recommended for follow-up. 3. Very slight fullness about the pancreatic head likely normal variation. If any symptoms referable to this area, correlation with pancreatic enzyme analysis. 4. The appendix is not well delineated on this study. What appears be the appendix has an unremarkable appearance. Dictated on workstation # [id number] Dict: 10/26/17 1401 Trans: 10/26/17 1422 [id number] Interpreted by: CLARE ARGUELLO DO Electronically signed by: Departure Impression Primary Impression: UTI (urinary tract infection) Disposition: 01 HOME, SELF-CARE Condition: Stable Departure-Patient Inst. Decision time for Depature: 14:03 Referrals: [facility] (PCP/Family) Primary Care Physician Patient Instructions: Urinary Tract Infection, Adult (DC) Add. Discharge Instructions: 1. Return to ER for any concerns 2. Antibiotics as directed 3. Follow-up with your doctor. Scripts Cefuroxime Axetil (Cefuroxime) 500 Mg Tablet 500 MG PO BID, #10 TAB Prov: JACKLYN NEVILLE APRN 10/26/17 JACKLYN NEVILLE APRN Oct 26, 2017 12:46
[2017-10-26 12:59] LABS: BASOPHILS % (AUTO) 0 % (0-10); EOSINOPHILS # (AUTO) 0.1 10^3/uL (0.0-0.3); EOSINOPHILS % (AUTO) 2 % (0-10); HEMATOCRIT 39 % (35-52); HEMOGLOBIN 13.2 G/DL (11.5-16.0); LYMPHOCYTES # (AUTO) 1.8 X 10^3 (1.0-4.0); LYMPHOCYTES % (AUTO) 21 % (12-44); MEAN CORPUSCULAR HGB CONC 34 G/DL (32-36); MEAN CORPUSCULAR VOLUME 89 FL (80-99); MONOCYTES % (AUTO) 11 % (0-12); NEUTROPHILS # (AUTO) 5.6 X 10^3 (1.8-7.8); NEUTROPHILS % (AUTO) 65 % (42-75); PLATELET COUNT 311 10^3/uL (130-400); RED BLOOD COUNT 4.33 10^6/uL (4.35-5.85); RED CELL DISTRIBUTION WIDTH 12.1 % (10.0-14.5); WHITE BLOOD COUNT 8.5 10^3/uL (4.3-11.0)
[2017-10-26 13:01] LABS: MEAN CORPUSCULAR HEMOGLOBIN 30 PG (25-34)
[2017-10-26 13:29] LABS: ALANINE AMINOTRANSFERASE 18 U/L (0-55); ALBUMIN 4.3 GM/DL (3.2-4.5); ALKALINE PHOSPHATASE 57 U/L (40-136); BILIRUBIN,TOTAL 0.4 MG/DL (0.1-1.0); BUN/CREATININE RATIO 12; CALCIUM 9.1 MG/DL (8.5-10.1); CARBON DIOXIDE 24 MMOL/L (21-32); CHLORIDE 111 MMOL/L (98-107); CREATININE SERUM 0.76 MG/DL (0.60-1.30); GFR ESTIMATED > 60; GLUCOSE 97 MG/DL (70-105); POTASSIUM 3.9 MMOL/L (3.6-5.0); SODIUM 141 MMOL/L (135-145); TOTAL PROTEIN 7.2 GM/DL (6.4-8.2)
[2017-10-26] MEDS ORDERED: NS 1000 ML IV BAG IV ONE (13:30)
[2017-10-26 13:36] LABS: BILIRUBIN,URINE NEGATIVE (NEGATIVE); CLARITY,URINE SLIGHTLY CLOUDY; COLOR,URINE YELLOW; GLUCOSE, URINE (UA) NEGATIVE (NEGATIVE); KETONES,URINE NEGATIVE (NEGATIVE); LEUKOCYTE ESTERASE ,URINE 2+ (NEGATIVE); NITRITE,URINE POSITIVE (NEGATIVE); PH,URINE 6.5 (5-9); PROTEIN,URINE 2+ (NEGATIVE); UROBILINOGEN,URINE NORMAL (NORMAL)
[2017-10-26] MEDS ORDERED: NS 250 ML (IVPB) BAG IV ONE (13:45)
[2017-10-26] MEDS ORDERED: IOHEXOL 350 MG/ML 100 ML (OMNIPAQUE 350) VIAL IV ONE (13:45)
[2017-10-26 13:49] LABS: BACTERIA,URINE LARGE /HPF; WBC,URINE >100 /HPF
[2017-10-26] MEDS ORDERED: cefTRIAXone INJECTION 1,000 MG in NS (IVPB) 50 ML IV ONE (14:00)
[2017-10-26] MEDS ORDERED: CEFU500T63 PO (14:05)
--- NOTE | 2017-10-26 14:22 | Diagnostic Imaging Report ---
PROCEDURE: CT abdomen and pelvis with contrast. TECHNIQUE: Multiple contiguous axial images were obtained through the abdomen and pelvis after administration of intravenous contrast. INDICATION: Right posterior kidney pain x2 hours. CORRELATION STUDY: 07/03/2015. FINDINGS: LOWER THORAX: Clear. LIVER: Unremarkable. GALLBLADDER: Present and unremarkable. No bile duct dilatation. SPLEEN: Unremarkable. PANCREAS: There is suggestion of very slight prominent appearance about the pancreatic head. Definitive mass lesion or otherwise inflammatory changes do not appear to be present. ADRENAL GLANDS: Unremarkable. KIDNEYS: There are some minimal areas of striated enhancement about the renal parenchyma slightly greater on the right. Otherwise unremarkable appearance. Collecting systems are unremarkable. No hydronephrosis. ABDOMINAL AORTA: Unremarkable, nonaneurysmal. GASTROINTESTINAL TRACT: What appears be the appendix is projecting medially from the cecum in the right hemipelvis. The appendix appears to be largely folded on itself and not well evaluated. The visualized portions do demonstrate what appears to be gas within the lumen and definitive inflammatory change is not otherwise suggested. Densities in the right hemipelvis appear to be migratory and likely within distal small bowel. No suggestion for obstruction. URINARY BLADDER: Relatively decompressed but otherwise unremarkable. REPRODUCTIVE: There is presence of small amount of free pelvic fluid. There is a curvilinear area of enhancement in the right adnexa likely reflective of an involuting cyst measuring 18 mm. Slight ill-defined appearance about the fundal aspect of the uterus. OSSEOUS STRUCTURES: No acute abnormality. OTHER: None. IMPRESSION: 1. Negative for obstructive uropathy. Very slight asymmetric enhancement about the renal parenchyma particularly the right kidney. This may be a normal variation. This can also be seen with underlying urinary tract infection/pyelonephritis. Correlation with urinary tract analysis. 2. There is what appears to be likely nearly 2 cm right adnexal cyst with presence of free pelvic fluid. This could be reflective of a ruptured cyst. Pelvic sonogram imaging would be recommended for follow-up. 3. Very slight fullness about the pancreatic head likely normal variation. If any symptoms referable to this area, correlation with pancreatic enzyme analysis. 4. The appendix is not well delineated on this study. What appears be the appendix has an unremarkable appearance. Dictated by: Dictated on workstation # [id number]
[2017-10-26 14:42] VITALS: BP 111/70
== END 2017-10-26 14:42 | disposition home or self-care (01) ==
LOC: EDUNIT# 12:30 → ER 12:32
DX: N39.0 Urinary tract infection, site not specified (principal); Z90.89 Acquired absence of other organs; Z96.0 Presence of urogenital implants; Z88.2 Allergy status to sulfonamides; Z88.1 Allergy status to other antibiotic agents
CPT/HCPCS: 36415; 74177; 80053; 81000; 84703; 85025; 87077; 87088; 87186; 96361; 96365

== ENCOUNTER 2018-05-25 18:37 | Emergency (ER) | payer BC, OTHER ==
[~2018-05-25] VITALS: Ht 165.1 cm; Wt 58.5 kg
[~2018-05-25 18:37] MED LIST changes: +CEFU500T63 PO
--- NOTE | 2018-05-25 19:04 | ED GI ---
General Chief Complaint: Abdominal/GI Problems Stated Complaint: VOMITING Source of Information: Patient Exam Limitations: No Limitations History of Present Illness Date Seen by Provider: May 25, 2018 Time Seen by Provider: 19:03 Initial Comments To ER per private vehicle with reports of nausea and vomiting for the past 48 hours. No diarrhea. She does have some lower suprapubic abdominal discomfort. She is about 12 weeks gestation. No vaginal bleeding. She has not yet had an ultrasound and is scheduled to have her first ultrasound on Wednesday05/31/18 Timing/Duration: 1-2 Days Severity/Quality: Moderate Location: Suprapubic Radiation: No Radiation Activities at Onset: None Associated Symptoms: Nausea/Vomiting Allergies and Home Medications Allergies Coded Allergies: sulfamethoxazole (Unverified Allergy, Severe, HIVES, 04/24/14) trimethoprim (Unverified Allergy, Severe, HIVES, 04/24/14) Home Medications Cefuroxime Axetil 500 Mg Tablet, 500 MG PO BID Prescribed by: JACKLYN NEVILLE on 10/26/17 1405 Patient Home Medication List Home Medication List Reviewed: Yes Review of Systems Review of Systems Constitutional: see HPI EENTM: No Symptoms Reported Respiratory: No Symptoms Reported Cardiovascular: No Symptoms Reported Gastrointestinal: See HPI, Abdominal Pain Genitourinary: No Symptoms Reported Musculoskeletal: no symptoms reported Skin: no symptoms reported Psychiatric/Neurological: No Symptoms Reported Endocrine: No Symptoms Reported Hematologic/Lymphatic: No Symptoms Reported Past Ihxbtqk-Xniwgi-Rjcdkz Hx Patient Social History 2nd Hand Smoke Exposure: No Recent Foreign Travel: No Contact w/Someone Who Travel: No Recent Hopitalizations: No Immunizations Up To Date Tetanus Booster (TDap): Less than 5yrs Seasonal Allergies Seasonal Allergies: No Past Medical History Surgeries: Yes Adenoidectomy, Tonsillectomy Respiratory: No Cardiac: No Neurological: No 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 0.0oz. [id number]; 21.6 BMI Method:Stated General Appearance: WD/WN, no apparent distress HEENT: PERRL/EOMI, normal ENT inspection Respiratory: no respiratory distress, no accessory muscle use Cardiovascular: regular rate, rhythm, no murmur (Or) Gastrointestinal: normal bowel sounds, soft Extremities: normal range of motion, non-tender Neurologic/Psychiatric: alert, normal mood/affect, oriented x 3 Skin: normal color, warm/dry Progress/Results/Core Measures Results/Orders Lab Results Laboratory Tests Test 05/25/18 19:05 05/25/18 19:10 Range/Units Urine Color YELLOW Urine Clarity CLEAR Urine pH 6 5-9 Urine Specific [place] 1.025 H 1.016-1.022 Urine Protein 2+ H NEGATIVE Urine Glucose (UA) NEGATIVE NEGATIVE Urine Ketones 4+ H NEGATIVE Urine Nitrite NEGATIVE NEGATIVE Urine Bilirubin NEGATIVE NEGATIVE Urine Urobilinogen 1 NORMAL MG/DL Urine Leukocyte Esterase 1+ H NEGATIVE Urine RBC (Auto) 1+ H NEGATIVE Urine RBC 0-2 /HPF Urine WBC 2-5 /HPF Urine Squamous Epithelial Cells 5-10 /HPF Urine Crystals NONE /LPF Urine Bacteria FEW H /HPF Urine Casts NONE /LPF Urine Mucus LARGE H /LPF Urine Culture Indicated NO White Blood Count 10.0 4.3-11.0 10^3/uL Red Blood Count 4.47 4.35-5.85 10^6/uL Hemoglobin 13.7 11.5-16.0 G/DL Hematocrit 38 35-52 % Mean Corpuscular Volume 86 80-99 FL Mean Corpuscular Hemoglobin 31 25-34 PG Mean Corpuscular Hemoglobin Concent 36 32-36 G/DL Red Cell Distribution Width 12.1 10.0-14.5 % Platelet Count 344 130-400 10^3/uL Mean Platelet Volume 9.9 7.4-10.4 FL Neutrophils (%) (Auto) 81 H 42-75 % Lymphocytes (%) (Auto) 12 12-44 % Monocytes (%) (Auto) 7 0-12 % Eosinophils (%) (Auto) 0 0-10 % Basophils (%) (Auto) 0 0-10 % Neutrophils # (Auto) 8.1 H 1.8-7.8 X 10^3 Lymphocytes # (Auto) 1.2 1.0-4.0 X 10^3 Monocytes # (Auto) 0.7 0.0-1.0 X 10^3 Eosinophils # (Auto) 0.0 0.0-0.3 10^3/uL Basophils # (Auto) 0.0 0.0-0.1 10^3/uL Sodium Level 139 135-145 MMOL/L Potassium Level 3.8 3.6-5.0 MMOL/L Chloride Level 104 98-107 MMOL/L Carbon Dioxide Level 21 21-32 MMOL/L Anion Gap 14 5-14 MMOL/L Blood Urea Nitrogen 15 7-18 MG/DL Creatinine 0.73 0.60-1.30 MG/DL Estimat Glomerular Filtration Rate > 60 BUN/Creatinine Ratio 21 Glucose Level 85 70-105 MG/DL Calcium Level 9.8 8.5-10.1 MG/DL Corrected Calcium 8.5-10.1 MG/DL Total Bilirubin 0.7 0.1-1.0 MG/DL Aspartate Amino Transf (AST/SGOT) 19 5-34 U/L Alanine Aminotransferase (ALT/SGPT) 17 0-55 U/L Alkaline Phosphatase 79 40-136 U/L Total Protein 8.4 H 6.4-8.2 GM/DL Albumin 4.9 H 3.2-4.5 GM/DL Lipase 18 8-78 U/L Human Chorionic Gonadotropin, Quant 68546 H <5 MIU/ML Serum Test, Qualitative POSITIVE NEGATIVE My Orders Orders - JACKLYN NEVILLE APRN Cbc With Automated Diff (05/25/18 18:41) Comprehensive Metabolic Panel (05/25/18 18:41) Ua Culture If Indicated (05/25/18 18:41) Lipase (05/25/18 18:41) Iv [place]-Insert (Order) (05/25/18 18:41) Hcg,Qualitative Serum (05/25/18 18:41) Hcg,Quantitative (05/25/18 19:01) Heart Tones (05/25/18 19:01) Promethazine Injection (Phenergan Injec (05/25/18 19:15) Ns Iv 1000 Ml (Sodium Chloride 0.9%) (05/25/18 19:15) Lactated Ringers (Lr 1000 Ml Iv Solution (05/25/18 20:00) Promethazine Injection (Phenergan Injec (05/25/18 20:15) Medications Given in ED Current Medications Medications Dose Ordered Sig/Deanna Route Start Time Stop Time Status Last Admin Dose Admin Promethazine HCl 25 mg ONCE ONCE IVP 05/25/18 19:15 05/25/18 19:16 DC 05/25/18 19:29 25 MG Vital Signs/I&O 05/25/18 18:54 Temp 98.1 Pulse 98 Resp 20 B/P (MAP) 110/72 (85) Pulse Ox 98 O2 Delivery Room Air Departure Impression Primary Impression: Nausea and vomiting during Disposition: HOME, SELF-CARE Condition: Stable Departure-Patient Inst. Decision time for Depature: 20:31 Referrals: [facility] (PCP/Family) Primary Care Physician Patient Instructions: Nausea and Vomiting of (DC) Add. Discharge Instructions: 1. Small frequent sips of fluid. Nausea medication as needed. All discharge instructions reviewed with patient and/or family. Voiced understanding. Scripts Promethazine HCl (Promethazine Tablet) 25 Mg Tablet 25 MG PO Q4H PRN for NAUSEA/VOMITING, #10 TAB Prov: JACKLYN NEVILLE APRN 05/25/18 Work/School Note: Work Release Form Date Seen in the Emergency Department: May 25, 2018 Return to Work: May 27, 2018 JACKLYN NEVILLE APRN May 25, 2018 19:04
[2018-05-25] MEDS ORDERED: PROMETHAZINE INJ 25 MG/ML (PHENERGAN) AMP IVP ONE ×2 (19:15→20:15)
[2018-05-25] MEDS ORDERED: NS IV 1000 ML 1,000 ML IV SCH (19:15)
[2018-05-25 19:21] LABS: BILIRUBIN,URINE NEGATIVE (NEGATIVE); CLARITY,URINE CLEAR; COLOR,URINE YELLOW; GLUCOSE, URINE (UA) NEGATIVE (NEGATIVE); KETONES,URINE 4+ (NEGATIVE); LEUKOCYTE ESTERASE ,URINE 1+ (NEGATIVE); NITRITE,URINE NEGATIVE (NEGATIVE); PH,URINE 6 (5-9); PROTEIN,URINE 2+ (NEGATIVE); UROBILINOGEN,URINE 1 MG/DL (NORMAL)
[2018-05-25 19:26] LABS: BASOPHILS % (AUTO) 0 % (0-10); EOSINOPHILS % (AUTO) 0 % (0-10); HEMATOCRIT 38 % (35-52); HEMOGLOBIN 13.7 G/DL (11.5-16.0); LYMPHOCYTES # (AUTO) 1.2 X 10^3 (1.0-4.0); LYMPHOCYTES % (AUTO) 12 % (12-44); MEAN CORPUSCULAR HEMOGLOBIN 31 PG (25-34); MEAN CORPUSCULAR HGB CONC 36 G/DL (32-36); MEAN CORPUSCULAR VOLUME 86 FL (80-99); MEAN PLATELET VOLUME 9.9 FL (7.4-10.4); MONOCYTES # (AUTO) 0.7 X 10^3 (0.0-1.0); MONOCYTES % (AUTO) 7 % (0-12); NEUTROPHILS # (AUTO) 8.1 X 10^3 (1.8-7.8); NEUTROPHILS % (AUTO) 81 % (42-75); PLATELET COUNT 344 10^3/uL (130-400); RED BLOOD COUNT 4.47 10^6/uL (4.35-5.85); RED CELL DISTRIBUTION WIDTH 12.1 % (10.0-14.5)
[2018-05-25 19:36] LABS: BACTERIA,URINE FEW /HPF; RBC,URINE 0-2 /HPF
[2018-05-25 19:39] LABS: ALANINE AMINOTRANSFERASE 17 U/L (0-55); ALBUMIN 4.9 GM/DL (3.2-4.5); ALKALINE PHOSPHATASE 79 U/L (40-136); BILIRUBIN,TOTAL 0.7 MG/DL (0.1-1.0); BUN/CREATININE RATIO 21; CALCIUM 9.8 MG/DL (8.5-10.1); CARBON DIOXIDE 21 MMOL/L (21-32); CHLORIDE 104 MMOL/L (98-107); CREATININE SERUM 0.73 MG/DL (0.60-1.30); GFR ESTIMATED > 60; GLUCOSE 85 MG/DL (70-105); LIPASE 18 U/L (8-78); POTASSIUM 3.8 MMOL/L (3.6-5.0); SODIUM 139 MMOL/L (135-145); TOTAL PROTEIN 8.4 GM/DL (6.4-8.2)
[2018-05-25] MEDS ORDERED: PROM25TA14 PO (20:32)
[2018-05-25] MEDS: LACTATED RINGERS 1,000 ML IV SCH ×2 (21:05→21:07)
[2018-05-25 21:55] VITALS: BP 110/72
== END 2018-05-25 21:56 | disposition home or self-care (01) ==
LOC: EDUNIT# 18:37 → ER 18:38
DX: O20.9 Hemorrhage in early pregnancy, unspecified (principal); Z88.2 Allergy status to sulfonamides; Z88.8 Allergy status to other drugs, medicaments and biological substances; Z90.89 Acquired absence of other organs; Z97.5 Presence of (intrauterine) contraceptive device; Z3A.12 12 weeks gestation of pregnancy
CPT/HCPCS: 36415; 80053; 81000; 83690; 84702; 84703; 85025

== ENCOUNTER 2018-08-15 23:29 | Emergency (ER) | payer OTHER ==
[~2018-08-15] VITALS: Ht 165.1 cm; Wt 57.6 kg
[~2018-08-15 23:29] MED LIST changes: +PROM25TA14 PO
[2018-08-16 00:32] LABS: BILIRUBIN,URINE NEGATIVE (NEGATIVE); CLARITY,URINE CLEAR; COLOR,URINE YELLOW; GLUCOSE, URINE (UA) NEGATIVE (NEGATIVE); KETONES,URINE NEGATIVE (NEGATIVE); LEUKOCYTE ESTERASE ,URINE NEGATIVE (NEGATIVE); NITRITE,URINE NEGATIVE (NEGATIVE); PH,URINE 7 (5-9); PROTEIN,URINE NEGATIVE (NEGATIVE); UROBILINOGEN,URINE NORMAL (NORMAL)
[2018-08-16 00:44] LABS: BACTERIA,URINE NEGATIVE /HPF
[2018-08-16 00:52] LABS: AMPHETAMINE SCREEN, URINE NEGATIVE (NEGATIVE); BARBITURATE SCREEN URINE NEGATIVE (NEGATIVE); BENZODIAZEPINES SCREEN URINE NEGATIVE (NEGATIVE); CANNABINOID SCREEN, URINE NEGATIVE (NEGATIVE); COCAINE SCREEN URINE NEGATIVE (NEGATIVE); METHADONE STAT NEGATIVE (NEGATIVE); METHAMPHETAMINE SCREEN URINE S NEGATIVE (NEGATIVE); OPIATE SCREEN URINE NEGATIVE (NEGATIVE); OXYCODONE STAT NEGATIVE (NEGATIVE); PROPOXYPHENE STAT NEGATIVE (NEGATIVE); TRICYCLIC ANTIDEPRESSANTS SCRE NEGATIVE (NEGATIVE)
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
[2018-08-16] MEDS ORDERED: KETOROLAC 60 MG/2 ML VIAL IM ONE (01:15)
[2018-08-16] MEDS ORDERED: ORPHENADRINE 60 MG/2 ML (NORFLEX) AMP IM ONE (01:15)
[2018-08-16] MEDS ORDERED: CYCLOBENZAPRINE 10 MG (FLEXERIL) TAB ONE (01:15)
[2018-08-16 01:43] VITALS: BP 123/62
== END 2018-08-16 01:43 | disposition home or self-care (01) ==
LOC: EDUNIT# 23:29 → ER 23:31
DX: M54.5 Low back pain (principal); G89.29 Other chronic pain; Z88.2 Allergy status to sulfonamides; Z88.8 Allergy status to other drugs, medicaments and biological substances; Z90.89 Acquired absence of other organs; Z87.440 Personal history of urinary (tract) infections; Z87.448 Personal history of other diseases of urinary system
CPT/HCPCS: 80306; 81000; 84703; 99284

== ENCOUNTER 2019-07-27 08:26 | Outpatient (RCR) | payer BC, OTHER ==
[~2019-07-27 08:26] MED LIST changes: -TRAM50TA2 PO; +TRM50T PO
== END 2019-10-25 | disposition home or self-care (01) ==
PROVIDERS: ATTEND Physician Assistant
DX: M50.123 Cervical disc disorder at C6-C7 level with radiculopathy (principal); M40.202 Unspecified kyphosis, cervical region; Z87.81 Personal history of (healed) traumatic fracture

== ENCOUNTER 2020-07-29 22:52 | Emergency (ER) | payer BC ==
[~2020-07-29] VITALS: Ht 165.1 cm; Wt 58.0 kg
--- NOTE | 2020-07-30 00:10 | ED Respiratory ---
General Chief Complaint: Respiratory Problems Stated Complaint: SOB Source: patient Exam Limitations: no limitations History of Present Illness Date Seen by Provider: Jul 29, 2020 Time Seen by Provider: 23:10 Initial Comments Patient presents to the ER by private conveyance from work at the [employer] where she was not doing anything particularly strenuous and she was struck suddenly with a feeling of shortness of breath made worse by exertion. She is not having cough fever hemoptysis sick contacts body aches nausea vomiting diarrhea or chest pain. She has no known significant medical history and does not follow with a doctor. Up till 2 months ago she was on oral control but not now. She does not smoke nor did she ever. She does not drink or use recreational drugs. She denies anxiety or history of panic disorder. Allergies and Home Medications Allergies Coded Allergies: sulfamethoxazole (Unverified Allergy, Severe, HIVES, 04/24/14) trimethoprim (Unverified Allergy, Severe, HIVES, 04/24/14) Home Medications Cefuroxime Axetil 500 Mg Tablet, 500 MG PO BID Prescribed by: JACKLYN NEVILLE on 10/26/17 1405 Promethazine HCl 25 Mg Tablet, 25 MG PO Q4H PRN for NAUSEA/VOMITING Prescribed by: JACKLYN NEVILLE on 05/25/182031 Patient Home Medication List Home Medication List Reviewed: Yes Review of Systems Review of Systems Constitutional: No chills, No fever; malaise EENTM: No ear discharge, No ear pain Respiratory: No cough; short of breath; No wheezing Cardiovascular: No chest pain, No edema Gastrointestinal: No abdominal pain, No nausea Genitourinary: No discharge, No dysuria Musculoskeletal: No back pain, No joint pain Psychiatric/Neurological: Denies Anxiety, Denies Depressed All Other Systems Reviewed Negative Unless Noted: Yes Past Holwzaw-Owynxd-Wigtov Hx Patient Social History Alcohol Use: Occasionally Uses 2nd Hand Smoke Exposure: No Recent Hopitalizations: No Immunizations Up To Date Tetanus Booster (TDap): Less than 5yrs PED Vaccines UTD: Yes Seasonal Allergies Seasonal Allergies: No Past Medical History Surgeries: Yes Adenoidectomy, Tonsillectomy Respiratory: No Cardiac: No Neurological: No 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 0.0oz. 57.018131pa; 21.6 BMI Method:Stated General Appearance: WD/WN, no apparent distress Eyes: Bilateral Eye Normal Inspection, Bilateral Eye PERRL, Bilateral Eye EOMI HEENT: PERRL/EOMI, normal ENT inspection, TMs normal, pharynx normal Neck: non-tender, full range of motion, supple, normal inspection Respiratory: lungs clear, normal breath sounds, no respiratory distress, no accessory muscle use (Oxygen saturation 98 to 90% on room air with nonlabored breathing.) Cardiovascular: normal peripheral pulses, regular rate, rhythm Neurologic/Psychiatric: alert, oriented x 3 Skin: normal color, warm/dry Progress/Results/Core Measures Suspected Sepsis SIRS Temperature: Pulse: Respiratory Rate: Laboratory Tests 07/30/20 00:35: White Blood Count 8.2 Blood Pressure / Mean: Laboratory Tests 07/30/20 00:35: Creatinine 0.71, Platelet Count 301, Total Bilirubin 0.4 Results/Orders Lab Results Laboratory Tests Test 07/29/20 23:10 07/30/20 00:35 Range/Units Coronavirus 2019 (ERICK) Negative Negative White Blood Count 8.2 4.3-11.0 10^3/uL Red Blood Count 4.18 3.80-5.11 10^6/uL Hemoglobin 12.5 11.5-16.0 g/dL Hematocrit 37 35-52 % Mean Corpuscular Volume 90 80-99 fL Mean Corpuscular Hemoglobin 30 25-34 pg Mean Corpuscular Hemoglobin Concent 33 32-36 g/dL Red Cell Distribution Width 11.7 10.0-14.5 % Platelet Count 301 130-400 10^3/uL Mean Platelet Volume 9.7 9.0-12.2 fL Immature Granulocyte % (Auto) 0 % Neutrophils (%) (Auto) 58 42-75 % Lymphocytes (%) (Auto) 32 12-44 % Monocytes (%) (Auto) 8 0-12 % Eosinophils (%) (Auto) 2 0-10 % Basophils (%) (Auto) 1 0-10 % Neutrophils # (Auto) 4.7 1.8-7.8 10^3/uL Lymphocytes # (Auto) 2.6 1.0-4.0 10^3/uL Monocytes # (Auto) 0.6 0.0-1.0 10^3/uL Eosinophils # (Auto) 0.1 0.0-0.3 10^3/uL Basophils # (Auto) 0.1 0.0-0.1 10^3/uL Immature Granulocyte # (Auto) 0.0 0.0-0.1 10^3/uL D-Dimer < 0.27 0.00-0.49 UG/ML Sodium Level 138 135-145 MMOL/L Potassium Level 3.8 3.6-5.0 MMOL/L Chloride Level 106 98-107 MMOL/L Carbon Dioxide Level 21 21-32 MMOL/L Anion Gap 11 5-14 MMOL/L Blood Urea Nitrogen 11 7-18 MG/DL Creatinine 0.71 0.60-1.30 MG/DL Estimat Glomerular Filtration Rate > 60 BUN/Creatinine Ratio 15 Glucose Level 85 70-105 MG/DL Calcium Level 9.1 8.5-10.1 MG/DL Corrected Calcium 8.8 8.5-10.1 MG/DL Total Bilirubin 0.4 0.1-1.0 MG/DL Aspartate Amino Transf (AST/SGOT) 29 5-34 U/L Alanine Aminotransferase (ALT/SGPT) 30 0-55 U/L Alkaline Phosphatase 53 40-136 U/L C-Reactive Protein High Sensitivity < 0.01 0.00-0.50 MG/DL Total Protein 7.0 6.4-8.2 GM/DL Albumin 4.4 3.2-4.5 GM/DL Serum Test, Qualitative NEGATIVE NEGATIVE Micro Results Microbiology 07/29/20 Influenza Types A,B Antigen (MEMO) - Final, Complete My Orders Orders - LAURIE ASTUDILLO Covid 19 Inhouse Test (07/29/20 23:19) Influenza A And B Antigens (07/29/20 23:19) Coronavirus Sars-Cov-2 So 2018 (07/30/20 00:08) Cbc With Automated Diff (07/30/20 00:08) Comprehensive Metabolic Panel (07/30/20 00:08) Hs C Reactive Protein (07/30/20 00:08) Chest 1 View, Ap/Pa Only (07/30/20 00:08) Fibrin Degradation Products (07/30/20 00:08) Hcg,Qualitative Serum (07/30/20 00:10) Vital Signs/I&O 07/29/20 23:04 Temp 36.5 Pulse 84 Resp 18 B/P (MAP) 67/ Pulse Ox 99 O2 Delivery Room Air O2 Flow Rate 110.00 Capillary Refill : Progress Note : Time: 00:12 Progress Note Initial Covid swab and influenza were negative. Discussed with the patient and try to give some reassurance and we are going to do some labs. Chest x-ray. No evidence of DVT on clinical examination nor did she have history of pulmonary embolisms. She denies any chest pain just what she describes as pressure and profound dyspnea which is not reflected in her vital signs or clinical exam. Wells score for pulmonary embolism: 0.0 points. Low risk group: 1.3% chance of PE in an ED population. PERC Rule 0 criteria; No need for further workup, as <2% chance of PE. Diagnostic Imaging Diagonstic Imaging: Xray Plain Films/CT/US/NM/MRI: chest Comments No acute cardiopulmonary processes on 1 view chest x-ray. Reviewed: Reviewed by Me Departure Impression Primary Impression: Viral syndrome Additional Impression: Person under investigation for COVID-19 Disposition: HOME, SELF-CARE Condition: Stable Departure-Patient Inst. Decision time for Depature: 02:00 Referrals: NO,LOCAL PHYSICIAN (PCP/Family) Primary Care Physician Patient Instructions: Coronavirus Disease 2019 (COVID-19) (DC) Add. Discharge Instructions: Your initial Covid and flu test are negative. We have sent out a much more sensitive Covid test which should have results in about 2 to 3 days. Somebody will call you with the results. Make sure you are drinking plenty of fluids. Tylenol and Motrin if you develop fever. Return to the ER for worsening symptoms or if you obtain a pulse oximeter and your oxygen saturations are consistently below 90%. Off quarantine when you are symptom-free for 72 hours with a negative Covid test. All discharge instructions reviewed with patient and/or family. Voiced understanding. Work/School Note: Work Release Form Date Seen in the Emergency Department: Jul 30, 2020 Return to Work: Aug 05, 2020 Restrictions: No Restrictions Other Restrictions Listed Below: Off isolation when symptom-free for 72 hours. LAURIE ASTUDILLO Jul 30, 2020 00:10
[2020-07-30 00:43] LABS: BASOPHILS # (AUTO) 0.1 10^3/uL (0.0-0.1); BASOPHILS % (AUTO) 1 % (0-10); EOSINOPHILS # (AUTO) 0.1 10^3/uL (0.0-0.3); EOSINOPHILS % (AUTO) 2 % (0-10); HEMATOCRIT 37 % (35-52); HEMOGLOBIN 12.5 g/dL (11.5-16.0); LYMPHOCYTES # (AUTO) 2.6 10^3/uL (1.0-4.0); LYMPHOCYTES % (AUTO) 32 % (12-44); MEAN CORPUSCULAR HEMOGLOBIN 30 pg (25-34); MEAN CORPUSCULAR HGB CONC 33 g/dL (32-36); MEAN CORPUSCULAR VOLUME 90 fL (80-99); MEAN PLATELET VOLUME 9.7 fL (9.0-12.2); MONOCYTES # (AUTO) 0.6 10^3/uL (0.0-1.0); MONOCYTES % (AUTO) 8 % (0-12); NEUTROPHILS # (AUTO) 4.7 10^3/uL (1.8-7.8); NEUTROPHILS % (AUTO) 58 % (42-75); PLATELET COUNT 301 10^3/uL (130-400); WHITE BLOOD COUNT 8.2 10^3/uL (4.3-11.0)
[2020-07-30 00:53] LABS: ALBUMIN 4.4 GM/DL (3.2-4.5); CHLORIDE 106 MMOL/L (98-107); POTASSIUM 3.8 MMOL/L (3.6-5.0); SODIUM 138 MMOL/L (135-145)
[2020-07-30 00:54] LABS: CALCIUM 9.1 MG/DL (8.5-10.1)
[2020-07-30 00:56] LABS: GLUCOSE 85 MG/DL (70-105)
[2020-07-30 00:57] LABS: CARBON DIOXIDE 21 MMOL/L (21-32)
[2020-07-30 00:58] LABS: BILIRUBIN,TOTAL 0.4 MG/DL (0.1-1.0)
[2020-07-30 00:59] LABS: ALKALINE PHOSPHATASE 53 U/L (40-136); CREATININE SERUM 0.71 MG/DL (0.60-1.30); GFR ESTIMATED > 60
[2020-07-30 01:01] LABS: BUN/CREATININE RATIO 15
[2020-07-30 01:02] LABS: ALANINE AMINOTRANSFERASE 30 U/L (0-55)
[2020-07-30 02:55] VITALS: BP 112/70
--- NOTE | 2020-07-30 06:33 | Diagnostic Imaging Report ---
INDICATION: Shortness of breath COMPARISON: 12/06/2014 FINDINGS: Single view of the chest demonstrates stable granuloma in the right upper lobe. The lungs are otherwise clear. There is no pneumothorax. The heart is normal. Osseous structures are age-appropriate. IMPRESSION: Negative chest Dictated by: Dictated on workstation # [id number]
== END 2020-07-30 03:00 | disposition home or self-care (01) ==
LOC: EDUNIT# 22:52 → ER 22:54
DX: B34.9 Viral infection, unspecified (principal); Z20.822 Contact with and (suspected) exposure to COVID-19; Z97.5 Presence of (intrauterine) contraceptive device; Z88.1 Allergy status to other antibiotic agents; Z88.2 Allergy status to sulfonamides; Z32.02 Encounter for pregnancy test, result negative
CPT/HCPCS: 87804; U0002; 36415; 71045; 80053; 84703; 85025; 85379; 86141; 87635